=== PATIENT | female | born 1995 | race Caucasian/White ===

== ENCOUNTER 2017-05-27 23:43 | Observation (INO) | payer SELFPAY ==
[2017-05-28] MEDS ORDERED: SODIUM CHLORIDE 1,000 ML IV STA (00:06)
[2017-05-28] MEDS ORDERED: ONDANSETRON 4 MG/2 ML VIAL IVPUSH ONE ×2 (00:06→01:58)
--- NOTE | 2017-05-28 00:07 | PDOC ---
History of Present Illness - General History Source: Patient Exam Limitations: No Limitations - History of Present Illness Initial Comments: 05/28/17 00:16 21 y/o F () presents to the ED via EMS with vomiting since yesterday. Patient has vomited every 20 minutes since yesterday. She states the vomit is liquid, sometimes yellow and frothy, but denies any blood. She reports associated dizziness and lightheadedness. She saw her OBGYN today who gave her Zofran, which has not worked and she has continues to vomit. She denies sick contacts, any new or unusual foods. Denies recent travel. Denies fever, chills. Denies diarrhea, constipation. Denies urinary complaints. OBGYN: Dr. Diamond PMHx: asthma Allergies: NKDA Surgeries: none SHx: no tobacco, alcohol, drug use <Purnima Snow - Last Filed: 05/28/17 00:51> <Janine Davies - Last Filed: 05/28/17 17:28> - General Chief Complaint: Nausea/Vomiting Stated Complaint: 2 1/2 MO /VOMITING Time Seen by Provider: 05/28/17 00:05 Past History <Purnima Snow - Last Filed: 05/28/17 00:51> - Past Medical History Asthma: Yes - Reproductive History (#): 1 Para: 0 - Immunization History Immunization Up to Date: No - Suicide/Smoking/Psychosocial Hx Smoking History: Never smoked Have you smoked in the past 12 months: No Hx Alcohol Use: No Drug/Substance Use Hx: No Substance Use Type: None <Janine Davies - Last Filed: 05/28/17 17:28> - Past Medical History Allergies/Adverse Reactions: Allergies Allergy/AdvReac Type Severity Reaction Status Date / Time No Known Allergies Allergy Verified 05/28/17 00:13 Home Medications: Ambulatory Orders Albuterol Sulfate Inhaler - [Ventolin Hfa Inhaler -] 2 inh PO Q4H PRN 05/28/17 Review of Systems - Review of Systems Able to Perform ROS?: Yes Comments:: 05/28/17 00:17 CONSTITUTIONAL: Absent: fever, chills, diaphoresis, generalized weakness, malaise, loss of appetite HEENT: Absent: rhinorrhea, nasal congestion, throat pain, throat swelling, difficulty swallowing, mouth swelling, ear pain, eye pain, visual changes CARDIOVASCULAR: Absent: chest pain, syncope, palpitations, irregular heart rate , lightheadedness, peripheral edema RESPIRATORY: Absent: cough, shortness of breath, dyspnea with exertion, orthopnea, wheezing, stridor, hemoptysis GASTROINTESTINAL: (+) vomiting. Absent: abdominal pain, abdominal distension, diarrhea, constipation, melena, hematochezia GENITOURINARY: Absent: dysuria, frequency, urgency, hesitancy, hematuria, flank pain, genital pain MUSCULOSKELETAL: Absent: myalgia, arthralgia, joint swelling SKIN: Absent: rash, itching, pallor HEMATOLOGIC/IMMUNOLOGIC: Absent: easy bleeding, easy bruising, lymphadenopathy, frequent infections ENDOCRINE: Absent: unexplained weight gain, unexplained weight loss, heat intolerance, cold intolerance NEUROLOGIC: (+) dizziness/lightheadedness. Absent: headache, focal weakness or paresthesias, unsteady gait, seizure, mental status changes, bladder or bowel incontinence PSYCHIATRIC: Absent: anxiety, depression, suicidal or homicidal ideation, hallucinations. <Purnima Snow - Last Filed: 05/28/17 00:51> *Physical Exam - Vital Signs Last Vital Signs Temp Pulse Resp BP Pulse Ox 98.5 F 75 19 141/79 97 05/28/17 00:05 05/28/17 00:05 05/28/17 00:05 05/28/17 00:05 05/28/17 00:05 - Physical Exam Comments: 05/28/17 00:51 GENERAL: Well developed, well nourished. Awake and alert. Actively vomiting. HEENT: Normocephalic, atraumatic. PERRLA, EOMI. No conjunctival pallor. Sclera are non-icteric. Moist mucous membranes. Oropharynx is clear. NECK: Supple. Full ROM. No JVD. Carotid pulses 2+ and symmetric, without bruits. No thyromegaly. No lymphadenopathy. CARDIOVASCULAR: Regular rate and rhythm. No murmurs, rubs, or gallops. Distal pulses are 2+ and symmetric. PULMONARY: No evidence of respiratory distress. Lungs clear to auscultation bilaterally. No wheezing, rales or rhonchi. ABDOMINAL: Soft. Non-tender. Non-distended. No rebound or guarding. No organomegaly. Normoactive bowel sounds. MUSCULOSKELETAL: Normal range of motion at all joints. No bony deformities or tenderness. No CVA tenderness. EXTREMITIES: No cyanosis. No clubbing. No edema. No calf tenderness. SKIN: Warm and dry. Normal capillary refill. No rashes. No jaundice. NEUROLOGICAL: Alert, awake, appropriate. Cranial nerves 2-12 intact. No deficits to light touch and temperature in face, upper extremities and lower extremities. No motor deficits in the in face, upper extremities and lower extremities. Normoreflexic in the upper and lower extremities. Normal speech. Toes are downgoing bilaterally. Gait is normal without ataxia. PSYCHIATRIC: Cooperative. Good eye contact. Appropriate mood and affect. <Purnima Snow - Last Filed: 05/28/17 00:51> ED Treatment Course - LABORATORY CBC & Chemistry Diagram: 05/28/17 00:50 05/28/17 00:50 <Janine Davies - Last Filed: 05/28/17 17:28> Medical Decision Making - Medical Decision Making 05/28/17 00:52 pt is appr 10 weeks with persistent vomiting -she saw Dr Bower today and he wrote a RX for anti -emetic medication and she took it but still vomited PMH asthma PSh none social history no smoking,no etoh <Janine Davies - Last Filed: 05/28/17 17:28> *DC/Admit/Observation/Transfer - Attestations Scribe Attestion: 05/28/17 00:18 Documentation prepared by Purnima Snow, acting as medical office asst for Janine Davies MD. <Purnima Snow - Last Filed: 05/28/17 00:51> <Janine Davies - Last Filed: 05/28/17 17:28> Diagnosis at time of Disposition: Hyperemesis - Discharge Dispostion Condition at time of disposition: Fair
[2017-05-28] MEDS ORDERED: ONDANSETRON 4 MG/2 ML VIAL ONE ×3 (00:39→02:07)
[2017-05-28 01:16] LABS: BASOPHIL 0.2 % (0-2.0); EOSINOPHIL 0.3 % (0-4.5); MCH 31.4 pg (25.7-33.7); MCHC 35.5 g/dl (32.0-36.0); MEAN CELL VOLUME 88.3 fl (80-96); MEAN PLT VOLUME 10.7 fl (7.5-11.1); NEUTROPHILS 83.5 % (42.8-82.8); PLATELET COUNT 180 K/MM3 (134-434); RDW 13.1 % (11.6-15.6); WHITE BLOOD COUNT 10.5 K/mm3 (4.0-10.0)
[2017-05-28 01:31] LABS: ALBUMIN 3.7 g/dl (3.4-5.0); ANION GAP 11 (8-16); BILIRUBIN,TOTAL 0.8 mg/dL (0.2-1.0); CALCIUM 8.5 mg/dL (8.5-10.1); CO2 22 mmol/L (21-32); CREATININE 0.4 mg/dL (0.55-1.02); GLUCOSE,RANDOM 92 mg/dL (74-106); SGOT/AST 10 U/L (15-37); SGPT/ALT 17 U/L (12-78); TOT PROT 6.8 g/dl (6.4-8.2)
[2017-05-28 01:32] LABS: ALK PHOS 37 U/L (45-117)
[2017-05-28] MEDS ORDERED: DEXTROSE 5%-NORMAL SALINE 1,000 ML IV ONE (01:58)
[2017-05-28] MEDS ORDERED: METOCLOPRAMIDE HCL INJECTION 10 MG/2 ML VIAL IVPUSH ONE (03:16)
[2017-05-28] MEDS ORDERED: METOCLOPRAMIDE HCL INJECTION 10 MG/2 ML VIAL ONE ×2 (03:19→08:50)
[2017-05-28] MEDS ORDERED: SODIUM CHLORIDE 0.9% 1000 ML INFUS.BAG IV ONE (04:35)
--- NOTE | 2017-05-28 04:38 | PDOC ---
*Physical Exam - Vital Signs Last Vital Signs Temp Pulse Resp BP Pulse Ox 98.5 F 75 19 141/79 97 05/28/17 00:05 05/28/17 00:05 05/28/17 00:05 05/28/17 00:05 05/28/17 00:05 - Physical Exam General Appearance: Yes: Mild Distress Gastrointestinal/Abdominal: positive: Soft. negative: Tender, Guarding, Rebound ED Treatment Course - LABORATORY CBC & Chemistry Diagram: 05/28/17 00:50 05/28/17 00:50 - ADDITIONAL ORDERS Additional order review: Laboratory Results 05/28/17 00:50 Sodium 137 Potassium 3.4 L Chloride 104 Carbon Dioxide 22 Anion Gap 11 BUN 6 L Creatinine 0.4 L D Creat Clearance w eGFR > 60 Random Glucose 92 Calcium 8.5 Total Bilirubin 0.8 AST 10 L D ALT 17 D Alkaline Phosphatase 37 L D Total Protein 6.8 Albumin 3.7 Lipase 137 05/28/17 00:50 RBC 3.49 L MCV 88.3 MCHC 35.5 RDW 13.1 MPV 10.7 Neutrophils % 83.5 H Lymphocytes % 8.2 Monocytes % 7.8 Eosinophils % 0.3 Basophils % 0.2 - Medications Given in the ED: ED Medications Discontinued Medications Generic Name Dose Route Start Last Admin Trade Name Freq PRN Reason Stop Dose Admin Diphenhydramine HCl 25 mg 05/28/17 03:16 05/28/17 03:28 Benadryl Injection - IVPUSH 05/28/17 03:17 25 mg ONCE ONE Administration Sodium Chloride 1,000 mls @ 1,000 mls/hr 05/28/17 00:06 05/28/17 01:07 Normal Saline - IV 05/28/17 01:05 1,000 mls/hr ASDIR STA Administration Dextrose/Sodium Chloride 1,000 mls @ 1,000 mls/hr 05/28/17 01:58 05/28/17 02:11 D5-Ns - IV 05/28/17 02:57 1,000 mls/hr ONCE ONE Administration Metoclopramide HCl 10 mg 05/28/17 03:16 05/28/17 03:28 Reglan Injection - IVPUSH 05/28/17 03:17 10 mg ONCE ONE Administration Ondansetron HCl 4 mg 05/28/17 00:06 05/28/17 01:08 Zofran Injection IVPUSH 05/28/17 00:07 4 mg ONCE ONE Administration Ondansetron HCl 4 mg 05/28/17 01:58 05/28/17 02:11 Zofran Injection IVPUSH 05/28/17 01:59 4 mg ONCE ONE Administration Medical Decision Making - Medical Decision Making 05/28/17 04:36 Reevaluation: Patient with hyperemesis gravidarum status post 8 mg Zofran and 2 L fluid 10 mg Reglan 25 mg Benadryl patient still unable to tolerate fluids by mouth We'll observe overnight for continued hydration and antiemetics and further evaluation. 05/28/17 05:20 *DC/Admit/Observation/Transfer Diagnosis at time of Disposition: Hyperemesis Qualifiers: Vomiting type: unspecified Nausea presence: with nausea Qualified Code(s): R11.2 - Nausea with vomiting, unspecified - Discharge Dispostion Condition at time of disposition: Fair Admit: Yes
[2017-05-28] MEDS: MULTIVIT IV ONE ×2 (08:59→11:21)
[2017-05-28] MEDS: LACTATED RINGERS IV ONE ×2 (08:59→11:21)
[2017-05-28] MEDS: METOCLOPRAMIDE HCL INJECTION 10 MG/2 ML VIAL IVPB SCH ×2 (09:25→17:18)
[2017-05-28 09:35] LABS: URINE APPEARANCE SLCLOUDY; URINE BILIRUBIN NEGATIVE (NEGATIVE); URINE BLOOD NEGATIVE (NEGATIVE); URINE COLOR LTYELLOW; URINE GLUCOSE (UA) NEGATIVE (NEGATIVE); URINE KETONE 2+ (NEGATIVE); URINE NITRITE NEGATIVE (NEGATIVE); URINE PROTEIN NEGATIVE (NEGATIVE); URINE UROBILINOGEN NEGATIVE mg/dL (0.2-1.0)
[2017-05-28 16:44] LABS: URINE LEUK ESTERASE 3+ (NEGATIVE)
[2017-05-28 19:08] LABS: URINE RBC 0-2 /hpf (0-3)
[2017-05-28 19:09] LABS: URINE BACTERIA MODERATE /hpf (NEGATIVE)
[2017-05-28] MEDS: DEXTROSE 5%-LACTATED RINGERS 1,000 ML IV SCH (21:00)
[2017-05-29] MEDS: METOCLOPRAMIDE HCL INJECTION 10 MG/2 ML VIAL IVPB SCH ×2 (01:17→10:05)
--- NOTE | 2017-05-29 11:57 | PN ---
Progress Note (SOAP) - Subjective Chief Complaint: Pt tolerating clears - Current Medications Current Medications: Active Medications Dextrose/Lactated Ringer's (D5-Lr -) 1,000 mls @ 125 mls/hr IV ASDIR NIKKI Last Admin: 05/28/17 21:00 Dose: 125 mls/hr Metoclopramide HCl (Reglan Injection -) 10 mg IVPB Q8H-IV NIKKI Last Admin: 05/29/17 10:05 Dose: 10 mg - Objective Vital Signs: Vital Signs Temperature 98.8 F 05/29/17 05:11 Pulse Rate 73 05/29/17 05:11 Respiratory Rate 18 05/29/17 05:11 Blood Pressure 112/79 05/29/17 05:11 O2 Sat by Pulse Oximetry (%) 99 05/28/17 09:02 Constitutional: Yes: Well Nourished, No Distress Assessment/Plan Hyperemesis Plan Advance diet when able to tolerate
[2017-05-29] MEDS: DEXTROSE 5%-LACTATED RINGERS 1,000 ML IV SCH (12:06)
[2017-05-29 12:22] VITALS: PULSE 89
[2017-05-29 14:24] VITALS: BP 104/54; TEMP 98.9
--- NOTE | 2017-05-29 16:01 | HP ---
Past Medical History - Admission Chief Complaint: Nausea and vomiting History of Present Illness: 21 yo @ 10 weeks gestation admitted due to inability to keep anything by mouth without vomiting. Patient started care at Dr. Diamond's office. She presented to ER c/o severe nausea and vomiting. History Source: Patient Limitations to Obtaining History: No Limitations - Past Medical History ...: 1 ...Para: 0 - Past Surgical History Past Surgical History: Yes: None Hx Myomectomy: No Hx Transabdominal Cerclage: No - Smoking History Smoking history: Never smoked Have you smoked in the past 12 months: No - Alcohol/Substance Use Hx Alcohol Use: No History of Substance Use: reports: None - Social History Usual Living Arrangement: Yes: With Parent History of Recent Travel: No Home Medications - Allergies Allergies/Adverse Reactions: Allergies Allergy/AdvReac Type Severity Reaction Status Date / Time No Known Allergies Allergy Verified 05/28/17 00:13 - Home Medications Home Medications: Ambulatory Orders Albuterol Sulfate Inhaler - [Ventolin Hfa Inhaler -] 2 inh PO Q4H PRN 05/28/17 Family Disease History - Family Disease History Family History: Unremarkable Review of Systems - Review of Systems Constitutional: reports: No Symptoms Eyes: reports: No Symptoms HENT: reports: No Symptoms Neck: reports: No Symptoms Cardiovascular: reports: No Symptoms Respiratory: reports: No Symptoms Gastrointestinal: reports: No Symptoms Genitourinary: reports: No Symptoms Breasts: reports: No Symptoms Reported Musculoskeletal: reports: No Symptoms Integumentary: reports: No Symptoms Neurological: reports: No Symptoms Endocrine: reports: No Symptoms Hematology/Lymphatic: reports: No Symptoms Psychiatric: reports: No Symptoms Pain Intensity: 0 Physical Exam - Maternity Vital Signs: Vital Signs Temperature 98.9 F 05/29/17 14:00 Pulse Rate 89 05/29/17 14:00 Respiratory Rate 18 05/29/17 14:00 Blood Pressure 104/54 05/29/17 14:00 O2 Sat by Pulse Oximetry (%) 99 05/28/17 09:02 Constitutional: Yes: Well Nourished Eyes: Yes: Conjunctiva Clear HENT: Yes: Atraumatic Neck: Yes: Supple, Trachea Midline Cardiovascular: Yes: Regular Rate and Rhythm Lungs: Clear to auscultation Breast(s): Yes: WNL - Abdominal Exam/OB Number of Fetuses: Single Contractions: No - Physical Exam ...Motor Strength: WNL Psychiatric: Yes: Alert, Oriented Assessment/Plan Hyperemesis Gravidarum Admit to antepartum IV multivitamin Reglan IVPB NPO
--- NOTE | 2017-05-29 16:12 | DS ---
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: Vital Signs Temperature 98.9 F 05/29/17 14:00 Pulse Rate 89 05/29/17 14:00 Respiratory Rate 18 05/29/17 14:00 Blood Pressure 104/54 05/29/17 14:00 O2 Sat by Pulse Oximetry (%) 99 05/28/17 09:02 Constitutional: Yes: Calm Eyes: Yes: Conjunctiva Clear HENT: Yes: Atraumatic Neck: Yes: Supple Cardiovascular: Yes: Regular Rate and Rhythm Respiratory: Yes: WNL Gastrointestinal: Yes: WNL External Genitalia: Yes: Normal Vaginal Exam: Yes: Normal Cervix: Yes: Normal Uterus: Yes: Other (Gravid) Extremities: Yes: WNL Neurological: Yes: Alert, Oriented ...Motor Strength: WNL Psychiatric: Yes: Alert, Oriented Discharge Summary Reason For Visit: 2 1/2 MO /VOMITING Current Active Problems Hyperemesis (Acute) Hospital Course: 21 yo admitted for severe hyperemesis gravidarum; she was placed on IV antiemetic and IV multivitamins. After being NPO for 24 hrs, she started to feel better and requested to be discharge home. Condition: Good - Instructions Diet, Activity, Other Instructions: Diet as tolerated Continue antiemetic F/U with Dr. Diamond in one week Disposition: HOME - Home Medications Comprehensive Discharge Medication List: Ambulatory Orders Albuterol Sulfate Inhaler - [Ventolin Hfa Inhaler -] 2 inh PO Q4H PRN 05/28/17
== END 2017-05-29 16:40 | disposition home or self-care (01) ==
LOC: JER 23:43 → JERBED 05-28 05:20 → J3W 05-28 09:40
PROVIDERS: ADMIT Obstetrics & Gynecology; ATTEND Obstetrics & Gynecology
PROC: 3E033GC Introduction of Other Therapeutic Substance into Peripheral Vein, Percutaneous Approach (ICD-10-PCS; principal; 2017-05-28)
PROC: 3E0337Z Introduction of Electrolytic and Water Balance Substance into Peripheral Vein, Percutaneous Approach (ICD-10-PCS; 2017-05-28)
DX: O21.0 Mild hyperemesis gravidarum (principal); Z3A.10 10 weeks gestation of pregnancy
CPT/HCPCS: 36415; 80053; 81003; 81015; 83690; 84702; 84703; 85025; 99283-25; G0378

== ENCOUNTER 2017-06-14 11:11 | Inpatient (IN) | payer MEDICARE, OTHER ==
--- NOTE | 2017-06-14 11:22 | PDOC ---
History of Present Illness - General Stated Complaint: 11 WEEKS VOMITING Time Seen by Provider: 06/14/17 11:18 - History of Present Illness Initial Comments: 06/14/17 11:24 21 yo at 12 wga who presents with emesis. Patient reports multiple episodes of non biliary or non bloody emesis within past 24 hours. Prior to onset she exeprienced 2-3 episodes of emesis over last 2 weeks. Also endorses lightheadedness and GI upset/burning abdomen. Denies chest pain, SOB, fevers/ chills, dysuria, vaginal bleeding, diarrhea, blood per stool. Recent ED encounter (05/31) with [facility] consultation. Obstetrics U/S (05/31/17): Single viable intrauterine gestation at 10 weeks 2 days. Has attempted, Zofran , Reglan , and B6 in past with mild alleviation of symtpoms. H/o Hyperemesis Gravidarum ( 05/28-05/29) admission. Past History - Past Medical History Allergies/Adverse Reactions: Allergies Allergy/AdvReac Type Severity Reaction Status Date / Time No Known Allergies Allergy Verified 06/14/17 11:32 Home Medications: Ambulatory Orders Albuterol Sulfate Inhaler - [Ventolin HFA Inhaler -] 2 inh PO Q4H PRN 05/28/17 Pnv#71/Iron/Folic Acid/Dha [Prena1 Shelley Softgel] 1 each PO DAILY #30 cap. 06/01/17 Anemia: No Asthma: Yes Cancer: No Cardiac Disorders: No CVA: No COPD: No CHF: No Dementia: No Diabetes: No GI Disorders: No Disorders: No HTN: No Hypercholesterolemia: No Liver Disease: No Seizures: No Thyroid Disease: No - Surgical History Abdominal Surgery: No Appendectomy: No Cardiac Surgery: No Cholecystectomy: No Lung Surgery: No Neurologic Surgery: No Orthopedic Surgery: No - Reproductive History (#): 1 Para: 0 - Immunization History Immunization Up to Date: No - Suicide/Smoking/Psychosocial Hx Smoking History: Never smoked Have you smoked in the past 12 months: No Hx Alcohol Use: No Drug/Substance Use Hx: Yes Substance Use Type: Marijuana Review of Systems - Review of Systems Comments:: 06/14/17 11:22 GENERAL/CONSTITUTIONAL: No fever or chills. No weakness. HEAD, EYES, EARS, NOSE AND THROAT: No change in vision. No ear pain or discharge. No sore throat.- CARDIOVASCULAR: No chest pain or shortness of breath RESPIRATORY: No cough, wheezing, or hemoptysis. GASTROINTESTINAL: + nausea, vomiting. No diarrhea or constipation. GENITOURINARY: No dysuria, frequency, or change in urination. MUSCULOSKELETAL: No joint or muscle swelling or pain. No neck or back pain. SKIN: No rash NEUROLOGIC: + Lightheadeness. No headache, vertigo, loss of consciousness, or change in strength/sensation. ENDOCRINE: No increased thirst. No abnormal weight change HEMATOLOGIC/LYMPHATIC: No anemia, easy bleeding, or history of blood clots. ALLERGIC/IMMUNOLOGIC: No hives or skin allergy. *Physical Exam - Physical Exam Comments: 06/14/17 11:22 GENERAL: Awake, alert, and fully oriented, in no acute distress HEAD: No signs of trauma, normocephalic, atraumatic EYES: PERRLA, EOMI, sclera anicteric, conjunctiva clear ENT:hearing grossly normal, nares patent, oropharynx clear without exudates. Moist mucosa NECK: Normal ROM, supple, no lymphadenopathy, JVD, or masses LUNGS: No distress, speaks full sentences, clear to auscultation bilaterally HEART: Regular rate and rhythm, normal S1 and S2, no murmurs, rubs or gallops, peripheral pulses normal and equal bilaterally. ABDOMEN: Soft, nontender, normoactive bowel sounds. No guarding, no rebound. No masses. Neg CVA ttp. EXTREMITIES : Normal inspection, Normal range of motion, no edema. No clubbing or cyanosis. SKIN: Warm, Dry, normal turgor, no rashes or lesions noted. ED Treatment Course - LABORATORY CBC & Chemistry Diagram: 06/14/17 11:35 06/14/17 11:35 Medical Decision Making - Medical Decision Making 06/14/17 13:01 21 yo at 12 wga who arrives EMS w/ multiple episodes of non biliary or non bloody emesis within past 24 hours. Also endorses lightheadedness and GI upset. Unable to tolerate PO intake. Denies chest pain, SOB, fevers/chills, dysuria, vaginal bleeding, diarrhea, blood per stool. Phyiscal exam unremarkable and patient normotensive. Recent ED encounter (05/31) with [facility] consultation and Obstetrics U/S (05/31/17): Single viable intrauterine gestation at 10 weeks 2 days. Has attempted, Zofran , Reglan, and B6 in past with mild alleviation of symtpoms. H/o Hyperemesis Gravidarum (05/28-05/29) requiring admission. ED Course: CBC,CMP, UA, BHCG QUANT 06/14/17 13:04 IVNS 1 L and Zofran 4 mg IVPB 06/14/17 13:19 WBC: 11.3 06/14/17 13:40 25 mg Diphenhydramine PO 06/14/17 13:40 FHR: 176 on bedside ultrasound with adequate movement and appropriate for age gestational size. 06/14/17 14:18 Pepcid 20 mg, Reglan, B6 06/14/17 17:07 Patient continues to vomit despite multiple antiemetics 06/14/17 17:[address] Brower 06/14/17 18:[address] Lucian Orellana PCP 06/14/17 18:[address]Elizabeth Brower/ Cell phone number called. Dr. 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 Mcintyre. She states that she will not admit pt. because she can manage symptoms as outpatient, but will come see pt. Admit pt.to Dr. Brower/Obs *DC/Admit/Observation/Transfer Diagnosis at time of Disposition: Hyperemesis arising during - Discharge Dispostion Admit: Yes - Referrals Referrals: Lucian Orellana MD [Primary Care Provider] - - Patient Instructions - Post Discharge Activity
[2017-06-14] MEDS ORDERED: SODIUM CHLORIDE 1,000 ML IV STA (11:34)
[2017-06-14] MEDS ORDERED: ONDANSETRON 4 MG/2 ML VIAL IVPB ONE ×2 (11:44→17:38)
[2017-06-14 11:45] LABS: BASOPHIL 0.4 % (0-2.0); EOSINOPHIL 0.1 % (0-4.5); MCH 30.5 pg (25.7-33.7); MCHC 33.3 g/dl (32.0-36.0); MEAN CELL VOLUME 91.5 fl (80-96); MEAN PLT VOLUME 10.5 fl (7.5-11.1); NEUTROPHILS 90.3 % (42.8-82.8); PLATELET COUNT 190 K/MM3 (134-434); RDW 13.8 % (11.6-15.6); WHITE BLOOD COUNT 11.3 K/mm3 (4.0-10.0)
[2017-06-14] MEDS ORDERED: ONDANSETRON 4 MG/2 ML VIAL ONE ×2 (11:52→17:31)
--- NOTE | 2017-06-14 11:52 | PDOC ---
Attending Attestation - Resident Resident Name: Cody Kraus - ED Attending Attestation I have performed the following: I have examined & evaluated the patient, The case was reviewed & discussed with the resident, I agree w/resident's findings & plan, Exceptions are as noted - HPI HPI: 06/14/17 14:04 21y at 12 weeks presents with vomiting. Pt was here recently and admitted for hyperemesis gravidarum, was feeling better at discharge and states she was doing well until about 3 am today, and endorsed some epigastric pain that has since resolved. No current abdominal pain, vaginal bleeding, fever/chills, diarrhea. On exam pt has mildly dry mmm, abd is soft nontender no LE edema suspect hyperemesis graviduarm vs. gastritis labs reviewed noted for mild leukocytosis wich is consistent with her UA pending will give pepcid/maalox, reglan, fluids, b6 will reassess - Physicial Exam PE: 06/18/17 08:18 see above - Medical Decision Making 06/14/17 17:28 pt still feeling naueus and unable to tolerate oral ntake will keep on observatio nstatus for further hydration and treatment with antiemetic
[2017-06-14 12:11] LABS: ALBUMIN 3.6 g/dl (3.4-5.0); ANION GAP 13 (8-16); CALCIUM 9.1 mg/dL (8.5-10.1); CO2 21 mmol/L (21-32); CREATININE 0.4 mg/dL (0.55-1.02); GLUCOSE,RANDOM 102 mg/dL (74-106); SGPT/ALT 25 U/L (12-78)
[2017-06-14 12:13] LABS: ALK PHOS 36 U/L (45-117); BILIRUBIN,TOTAL 0.7 mg/dL (0.2-1.0); TOT PROT 7.2 g/dl (6.4-8.2)
[2017-06-14 12:14] LABS: SGOT/AST 18 U/L (15-37)
[2017-06-14 13:34] LABS: URINE APPEARANCE CLOUDY; URINE BILIRUBIN NEGATIVE (NEGATIVE); URINE BLOOD NEGATIVE (NEGATIVE); URINE COLOR YELLOW; URINE GLUCOSE (UA) NEGATIVE (NEGATIVE); URINE KETONE 2+ (NEGATIVE); URINE NITRITE NEGATIVE (NEGATIVE); URINE PROTEIN NEGATIVE (NEGATIVE); URINE UROBILINOGEN NEGATIVE mg/dL (0.2-1.0)
[2017-06-14] MEDS ORDERED: METOCLOPRAMIDE HCL INJECTION 10 MG/2 ML VIAL IVPUSH ONE ×2 (14:04→17:09)
[2017-06-14] MEDS ORDERED: FAMOTIDINE 20 MG/50 ML IVPB 20 MG/50 ML MG IVPB ONE ×2 (14:05→14:13)
[2017-06-14] MEDS ORDERED: METOCLOPRAMIDE HCL INJECTION 10 MG/2 ML VIAL ONE (14:13)
[2017-06-14] MEDS ORDERED: PYRIDOXINE HCL 100 MG/1 ML VIAL IM ONE (14:15)
[2017-06-14] MEDS: DEXTROSE 5%-0.45% SALINE 1,000 ML IV SCH (17:35)
[2017-06-14 20:23] LABS: URINE LEUK ESTERASE Negative (NEGATIVE)
[2017-06-14] MEDS ORDERED: ONDANSETRON 4 MG/2 ML VIAL IVPUSH PRN (22:23)
[2017-06-15] MEDS: DEXTROSE 5%-0.45% SALINE 1,000 ML IV SCH ×3 (00:21→14:48)
[2017-06-15] MEDS ORDERED: ALBUTEROL SO4 18 GM HFA INHALER IH PRN (00:35)
[2017-06-15] MEDS: ONDANSETRON 4 MG/2 ML VIAL IVPUSH PRN ×4 (01:35→20:14)
[2017-06-15 07:49] LABS: BASOPHIL 0.4 % (0-2.0); EOSINOPHIL 0.2 % (0-4.5); MCH 31.1 pg (25.7-33.7); MCHC 34.2 g/dl (32.0-36.0); MEAN PLT VOLUME 10.7 fl (7.5-11.1); NEUTROPHILS 79.5 % (42.8-82.8); PLATELET COUNT 179 K/MM3 (134-434); RDW 13.7 % (11.6-15.6); WHITE BLOOD COUNT 9.4 K/mm3 (4.0-10.0)
[2017-06-15 08:25] LABS: ALBUMIN 3.5 g/dl (3.4-5.0); ANION GAP 11 (8-16); CALCIUM 9.1 mg/dL (8.5-10.1); CO2 22 mmol/L (21-32); CREATININE 0.4 mg/dL (0.55-1.02); GLUCOSE,RANDOM 96 mg/dL (74-106); SGOT/AST 17 U/L (15-37)
[2017-06-15 08:28] LABS: ALK PHOS 35 U/L (45-117); BILIRUBIN,TOTAL 0.9 mg/dL (0.2-1.0); SGPT/ALT 26 U/L (12-78); TOT PROT 6.6 g/dl (6.4-8.2)
[2017-06-15] MEDS ORDERED: PT OWN MED DRAWER 7, Y5N ONE (09:42)
[2017-06-15] MEDS: PRENATAL VITAMINS W/ FOLIC ACID TABLET (FP) PO SCH (09:43)
--- NOTE | 2017-06-15 10:22 | CON.OBG ---
Consult Consult Specialty:: [employer] [facility] OPERATOR Referred by:: Cody Kraus Reason for Consultation:: Nausea / Vomiting - History of Present Illness Chief Complaint: Vomiting in / Dizziness History of Present Illness: 21 yo @ 12 weeks gestation, EDC 12/26/17, patient of DR. Diamond, admitted for the third time for vomiting in associated with dizziness. Patient admits to loosing weight despite taking PO antiemetic. Patient seen and evaluated, she's not in distress, she's on her cell phone texting; she does not look sick. - History Source History Provided By: Patient Limitations to Obtaining History: No Limitations - Past Medical History ...LMP: 02/28/17 ...: Yes - Past Surgical History Past Surgical History: Yes: None - Alcohol/Substance Use Hx Alcohol Use: No History of Substance Use: reports: None - Smoking History Smoking history: Never smoked Have you smoked in the past 12 months: No - Social History History of Recent Travel: No Home Medications - Allergies Allergies/Adverse Reactions: Allergies Allergy/AdvReac Type Severity Reaction Status Date / Time No Known Allergies Allergy Verified 06/14/17 11:32 - Home Medications Home Medications: Ambulatory Orders Albuterol Sulfate Inhaler - [Ventolin HFA Inhaler -] 2 inh PO Q4H PRN 05/28/17 Pnv#71/Iron/Folic Acid/Dha [Prena1 Shelley Softgel] 1 each PO DAILY #30 cap. 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 Signs: Vital Signs Temperature 98.5 F 06/15/17 06:00 Pulse Rate 80 06/15/17 06:00 Respiratory Rate 20 06/15/17 06:00 Blood Pressure 121/80 06/15/17 06:00 O2 Sat by Pulse Oximetry (%) 100 06/14/17 21:50 Constitutional: Yes: Calm Eyes: Yes: Conjunctiva Clear HENT: Yes: Atraumatic Neck: Yes: Supple Cardiovascular: Yes: Regular Rate and Rhythm Respiratory: Yes: Regular Gastrointestinal: Yes: Normal Bowel Sounds Vaginal Exam: Yes: Normal Cervix: No: Bleeding Uterus: Yes: Enlarged Breast(s): Yes: WNL Musculoskeletal: Yes: WNL Extremities: Yes: WNL Neurological: Yes: Alert, Oriented ...Motor Strength: WNL Psychiatric: Yes: Alert, Oriented Labs: CBC, BMP 06/15/17 06:45 06/15/17 06:45 Assessment/Plan Vomiting in Dizziness Continue IV antiemetic Change clear liquid diet to full liquid diet Consider D/C home tomorrow and follow up with Dr. Diamond on 06/18/17
[2017-06-15] MEDS ORDERED: METOCLOPRAMIDE HCL INJECTION 10 MG/2 ML VIAL IVPB ONE (14:30)
--- NOTE | 2017-06-15 16:06 | HP ---
Admitting History and Physical - Admission Chief Complaint: vomiting History of Present Illness: Pt is a 21 y/o female who is 12 weeks and to the ER w/ vomiting. Pt states that for the past 24 hrs she has ahd continuous vomiting and is unable to tolerate PO intake. Pt denies any abdominal pain and no diarrhea/ constipation/fever/chills. History Source: Patient, Medical Record - Past Medical History ...LMP: 02/28/17 ...: Yes - Past Surgical History Past Surgical History: Yes: None - Smoking History Smoking history: Never smoked Have you smoked in the past 12 months: No - Alcohol/Substance Use Hx Alcohol Use: No History of Substance Use: reports: None - Social History History of Recent Travel: No Home Medications - Allergies Allergies/Adverse Reactions: Allergies Allergy/AdvReac Type Severity Reaction Status Date / Time No Known Allergies Allergy Verified 06/14/17 11:32 - Home Medications Home Medications: Ambulatory Orders Albuterol Sulfate Inhaler - [Ventolin HFA Inhaler -] 2 inh PO Q4H PRN 05/28/17 Pnv#71/Iron/Folic Acid/Dha [Prena1 Shelley Softgel] 1 each PO DAILY #30 cap. 06/01/17 Family Disease History - Family Disease History Family History: Unremarkable Review of Systems - Review of Systems Constitutional: reports: No Symptoms Eyes: reports: No Symptoms HENT: reports: No Symptoms Neck: reports: No Symptoms Cardiovascular: reports: No Symptoms Respiratory: reports: No Symptoms Gastrointestinal: reports: Vomiting Genitourinary: reports: No Symptoms Physical Examination Vital Signs: Vital Signs Temperature 99.1 F 06/15/17 14:38 Pulse Rate 79 06/15/17 14:38 Respiratory Rate 20 06/15/17 14:38 Blood Pressure 119/62 06/15/17 14:38 O2 Sat by Pulse Oximetry (%) 100 06/15/17 09:00 Constitutional: Yes: No Distress Eyes: Yes: WNL HENT: Yes: WNL Neck: Yes: WNL, Supple Cardiovascular: Yes: WNL, Regular Rate and Rhythm Respiratory: Yes: WNL, Regular, CTA Bilaterally Gastrointestinal: Yes: WNL, Normal Bowel Sounds Musculoskeletal: Yes: WNL Extremities: Yes: WNL Edema: No Neurological: Yes: WNL, Alert, Oriented ...Motor Strength: WNL Labs: CBC, BMP 06/15/17 06:45 06/15/17 06:45 Problem List - Problems (1) Intractable vomiting Assessment/Plan: Probably hperemesis of Cont IV fluids Full liquid diet IV zofran 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
[2017-06-16] MEDS ORDERED: ACETAMINOPHEN 325 MG TABLET (FP) PO ONE (00:45)
[2017-06-16] MEDS ORDERED: METOCLOPRAMIDE HCL 10 MG TABLET (FP) PO ONE (00:45)
[2017-06-16] MEDS: DEXTROSE 5%-0.45% SALINE 1,000 ML IV SCH ×2 (04:12→16:57)
[2017-06-16 08:44] LABS: BASOPHIL 0.6 % (0-2.0); EOSINOPHIL 0.6 % (0-4.5); MCH 30.6 pg (25.7-33.7); MCHC 33.7 g/dl (32.0-36.0); MEAN CELL VOLUME 90.9 fl (80-96); MEAN PLT VOLUME 10.6 fl (7.5-11.1); NEUTROPHILS 69.9 % (42.8-82.8); PLATELET COUNT 198 K/MM3 (134-434); RDW 13.7 % (11.6-15.6); WHITE BLOOD COUNT 10.3 K/mm3 (4.0-10.0)
[2017-06-16] MEDS ORDERED: PT OWN MED DRAWER 7, Y5N ONE (09:03)
[2017-06-16 09:09] LABS: ALBUMIN 3.4 g/dl (3.4-5.0); ANION GAP 13 (8-16); BILIRUBIN,TOTAL 0.9 mg/dL (0.2-1.0); CALCIUM 8.9 mg/dL (8.5-10.1); CO2 21 mmol/L (21-32); CREATININE 0.5 mg/dL (0.55-1.02); GLUCOSE,RANDOM 87 mg/dL (74-106); SGOT/AST 14 U/L (15-37); SGPT/ALT 30 U/L (12-78); TOT PROT 6.9 g/dl (6.4-8.2)
[2017-06-16] MEDS: ONDANSETRON 4 MG/2 ML VIAL IVPUSH PRN (09:09)
[2017-06-16] MEDS: PRENATAL VITAMINS W/ FOLIC ACID TABLET (FP) PO SCH (09:09)
[2017-06-16 09:10] LABS: ALK PHOS 36 U/L (45-117)
[2017-06-16] MEDS ORDERED: ACETAMINOPHEN 325 MG TABLET (FP) PO PRN (11:39)
--- NOTE | 2017-06-16 12:29 | CON.GI ---
Consult Consult Specialty:: GI Referred by:: Dr Brower Reason for Consultation:: hyperemesis - History of Present Illness Chief Complaint: Patient c/o frequent vomiting and inability to hold food or liquid down. History of Present Illness: 21 F with h/o asthma which she states is only a problem when she has URI now with hyperemesis gravidarum. She states she has had excessive vomiting for the past 3 days. She has seen some coffeegrounds in her vomitus but not seen by nurse and she states yellow stools. She has no abdominal pain. - History Source History Provided By: Patient, Medical Record Limitations to Obtaining History: No Limitations - Past Medical History Cardio/Vascular: No: AFIB, Aneurysm, Aortic Insufficiency, Aortic Stenosis, CAD , CHF, Deep Vein Thrombosis, HTN, Hyperlipdemia, [place], Mitral Insufficiency, Mitral Stenosis, Murmur, Pulmonary Hypertension, Other Pulmonary: Yes: Asthma Gastrointestinal: No: Ascites, Cancer, Constipation, Crohn's Disease, Diverticulitis, Diverticulosis, Esophageal Varices, Gastritis, GERD, GI Bleed, Hemorrhoids, Hiatal Hernia, Inflamatory Bowel Disease, Irritable Bowel Disease, Pancreatitis, Peptic Ulcer Disease, Ulcerative Colitis, Other Hepatobiliary: No: Cirrhosis, Cholelithiasis, Cholecystitis, Choledocholithiasis , Hepatitis A, Hepatitis B, Hepatitis C, Other Renal/: No: Renal Failure, Renal Inusuff, BPH, Cancer, Hematuria, Hemodialysis , Neurogenic Bladder, Renal Calculi, UTI, Other Reproductive: No: Ectopic , Endometriosis, Fibroids, PID, Polycystic Ovary Syndrome, Postmenopausal, Other ...LMP: 02/28/17 ...: Yes Heme/Onc: No: Anemia, B12 Deficiency, Bleeding Disorder, Cancer, Current Chemotherapy, Current Radiation Therapy, Hemochromatosis, Hypercoaguable State, Myeloproliferative Synd, Sickle Cell Disease, Sickle Cell Trait, Thrombocytopenia, Other Infectious Disease: No: AIDS, C-Diff, Herpes Zoster, HIV, MRSA, STD's, Tuberculosis, VREF, Other Psych: No: Addictions, Anxiety, Bipolar, Depression, Panic, Psychosis, Schizophrenia, Other Musculoskeletal: No: Bursitis, Chronic low back pain, Hemiparesis, Hemiplegia, Osteoarthritis, Paraplegia, Other Rheumatology: No: Fibromyalgia, Gout, Lupus, Rheumatoid Arthritis, Sarcoidosis, Vasculitis, Other ENT: No: Allergic Rhinitis, Sinusitis, Other Endocrine: No: Lamoille's Disease, Lidia's Disease, Diabetes Insipidus, Diabetes Mellitus, Hyperparathyroidism, Hyperthyroidism, Hypothyroidism, Osteopenia, SIADH, Other Dermatology: No: Basal Cell, Cellulitis, Eczema, Melanoma, Psoriasis, Squamous Cell, Other - Past Surgical History Past Surgical History: Yes: None. No: AAA Repair, AICD, Amputation, Appendectomy, Arthrosocopy, AV Fistula/Graft, Bariatric Surgery, Breast Biopsy, Bypass, CABG, Carotid Endarterectomy, Cataract Removal, Cholecystectomy, Colectomy, Colonoscopy, Colostomy, Craniotomy, , Cystectomy, Hernia Repair, Hysterectomy, Ileal Conduit, Ileosotomy, Joint Replacement, Kidney Transplant, Laminectomy, Liver Transplant, Mastectomy, Nephrectomy, Oopherectomy , Orchiectomy, Permanent Pacemaker, Prostatectomy, Splenectomy, Stent, Thoracotomy, TURP, Tonsillectomy, Tubal Ligation, Upper Endoscopy, Valve Replacement, Vasectomy, Vein Stripping/Ligation - Alcohol/Substance Use Hx Alcohol Use: No History of Substance Use: reports: None (denies marijuana use) - Smoking History Smoking history: Never smoked Have you smoked in the past 12 months: No - Social History History of Recent Travel: No Home Medications - Allergies Allergies/Adverse Reactions: Allergies Allergy/AdvReac Type Severity Reaction Status Date / Time No Known Allergies Allergy Verified 06/14/17 11:32 - Home Medications Home Medications: Ambulatory Orders Albuterol Sulfate Inhaler - [Ventolin HFA Inhaler -] 2 inh PO Q4H PRN 05/28/17 Pnv#71/Iron/Folic Acid/Dha [Prena1 Shelley Softgel] 1 each PO DAILY #30 cap 06/01/17 Physical Exam-GI Vital Signs: Vital Signs Temperature 98 F 06/16/17 09:00 Pulse Rate 73 06/16/17 09:00 Respiratory Rate 18 06/16/17 09:00 Blood Pressure 132/82 06/16/17 09:00 O2 Sat by Pulse Oximetry (%) 99 06/16/17 09:00 Constitutional: Yes: Well Nourished, Moderate Distress HENT: Yes: Normocephalic Neck: Yes: Supple Cardiovascular: Yes: Regular Rate and Rhythm Respiratory: Yes: CTA Bilaterally Gastrointestinal Inspection: Yes: WNL ...Auscultate: Yes: Normoactive Bowel Sounds ...Palpate: Yes: Soft Psychiatric: Yes: Other (depressed affect) Labs: CBC, BMP 06/16/17 07:30 06/16/17 07:30 Imaging - Results Ultrasound: Report Reviewed (negative study) Assessment/Plan 21 F with 10 weeki now with hyperemesis gravidarum. Ondansetron d/c'd as there could be problems associated with the use of this drug. (mixed reviews suggest Possible problem although unlikely. It is still a class B drug) Continue reglan (Class B)-to be given as standing order and IVPB as she is still actively vomiting. IVF full liquid diet Pyridoxine IVPB If vomiting continues, rec benadryl 50 mg IVPB q6h
[2017-06-16] MEDS: METOCLOPRAMIDE HCL INJECTION 10 MG/2 ML VIAL IVPUSH PRN (15:03)
[2017-06-16] MEDS: PYRIDOXINE HCL 100 MG/1 ML VIAL IM SCH (15:04)
--- NOTE | 2017-06-16 21:53 | PN ---
Progress Note, Physician History of Present Illness: Pt w/ some abdominal discomfort Pt was unable to tolerate PO today - Current Medication List Current Medications: Active Medications Acetaminophen (Tylenol -) 650 mg PO Q4H PRN PRN Reason: FEVER OR PAIN Last Admin: 06/16/17 11:43 Dose: 650 mg Albuterol Sulfate (Ventolin Hfa Inhaler -) 2 puff IH Q4H PRN PRN Reason: ASTHMA Dextrose/Sodium Chloride (D5-1/2ns -) 1,000 mls @ 75 mls/hr IV ASDIR [facility] Last Admin: 06/16/17 16:57 Dose: 75 mls/hr Metoclopramide HCl (Reglan Injection -) 10 mg IVPUSH Q6H PRN PRN Reason: NAUSEA AND/OR VOMITING Last Admin: 06/16/17 15:03 Dose: 10 mg Multivit/Folic Acid/Iron ( Vitamins (Sjr) -) 1 tab PO DAILY [facility] Last Admin: 06/16/17 09:09 Dose: 1 tab Pyridoxine HCl (Vitamin B6 Injection -) 100 mg IM DAILY [facility] Last Admin: 06/16/17 15:04 Dose: 100 mg - Objective Vital Signs: Vital Signs Temperature 98.4 F 06/16/17 14:42 Pulse Rate 93 H 06/16/17 14:42 Respiratory Rate 18 06/16/17 14:42 Blood Pressure 119/71 06/16/17 14:42 O2 Sat by Pulse Oximetry (%) 99 06/16/17 21:00 Constitutional: Yes: No Distress HENT: Yes: WNL Neck: Yes: WNL, Supple Cardiovascular: Yes: WNL, Regular Rate and Rhythm Respiratory: Yes: WNL, Regular, CTA Bilaterally Gastrointestinal: Yes: WNL, Normal Bowel Sounds, Soft Labs: CBC, BMP 06/16/17 07:30 06/16/17 07:30 Problem List - Problems (1) Intractable vomiting Assessment/Plan: Probably hperemesis of Cont IV fluids Diet changed back to liquids Zofran changed to reglan as per GI Will attempt regular diet in am inAs per communications programmer Code(s): R11.10 - VOMITING, UNSPECIFIED
[2017-06-17] MEDS: DEXTROSE 5%-0.45% SALINE 1,000 ML IV SCH ×2 (00:45→06:06)
[2017-06-17 08:05] LABS: BASOPHIL 0.9 % (0-2.0); EOSINOPHIL 1.7 % (0-4.5); MCH 30.9 pg (25.7-33.7); MEAN CELL VOLUME 90.7 fl (80-96); MEAN PLT VOLUME 10.1 fl (7.5-11.1); NEUTROPHILS 62.8 % (42.8-82.8); PLATELET COUNT 169 K/MM3 (134-434); RDW 13.6 % (11.6-15.6); WHITE BLOOD COUNT 6.9 K/mm3 (4.0-10.0)
[2017-06-17] MEDS: METOCLOPRAMIDE HCL INJECTION 10 MG/2 ML VIAL IVPUSH PRN (08:24)
[2017-06-17 08:46] LABS: ALBUMIN 2.9 g/dl (3.4-5.0); ALK PHOS 32 U/L (45-117); ANION GAP 11 (8-16); BILIRUBIN,TOTAL 1.1 mg/dL (0.2-1.0); CALCIUM 8.3 mg/dL (8.5-10.1); CO2 23 mmol/L (21-32); CREATININE 0.4 mg/dL (0.55-1.02); GLUCOSE,RANDOM 80 mg/dL (74-106); SGOT/AST 15 U/L (15-37); SGPT/ALT 30 U/L (12-78); TOT PROT 5.6 g/dl (6.4-8.2)
[2017-06-17] MEDS ORDERED: PT OWN MED DRAWER 7, Y5N ONE (09:12)
[2017-06-17] MEDS: PYRIDOXINE HCL 100 MG/1 ML VIAL IM SCH (09:16)
[2017-06-17] MEDS ORDERED: POTASSIUM CHLORIDE 30 MEQ in SODIUM CHLORIDE 285 ML IVPB ONE (10:30)
[2017-06-17] MEDS: PRENATAL VITAMINS W/ FOLIC ACID TABLET (FP) PO SCH (10:42)
[2017-06-17] MEDS: ONDANSETRON 4 MG/2 ML VIAL IVPUSH PRN ×2 (14:45→22:12)
--- NOTE | 2017-06-17 22:40 | PN ---
Progress Note, Physician - Current Medication List Current Medications: Active Medications Acetaminophen (Tylenol -) 650 mg PO Q4H PRN PRN Reason: FEVER OR PAIN Last Admin: 06/16/17 11:43 Dose: 650 mg Albuterol Sulfate (Ventolin Hfa Inhaler -) 2 puff IH Q4H PRN PRN Reason: ASTHMA Dextrose/Sodium Chloride (D5-1/2ns -) 1,000 mls @ 75 mls/hr IV ASDIR [facility] Last Admin: 06/17/17 06:06 Dose: 75 mls/hr Ondansetron HCl (Zofran Injection) 4 mg IVPUSH Q8H PRN PRN Reason: NAUSEA AND/OR VOMITING Last Admin: 06/17/17 22:12 Dose: 4 mg Multivit/Folic Acid/Iron ( Vitamins (Sjr) -) 1 tab PO DAILY [facility] Last Admin: 06/17/17 10:42 Dose: Not Given Pyridoxine HCl (Vitamin B6 Injection -) 100 mg IM DAILY [facility] Last Admin: 06/17/17 09:16 Dose: 100 mg - Objective Vital Signs: Vital Signs Temperature 99.4 F 06/17/17 19:34 Pulse Rate 86 06/17/17 19:34 Respiratory Rate 18 06/17/17 19:34 Blood Pressure 108/64 06/17/17 19:34 O2 Sat by Pulse Oximetry (%) 99 06/17/17 10:00 Labs: CBC, BMP 06/17/17 07:30 06/17/17 07:30 Problem List - Problems (1) Intractable vomiting Code(s): R11.10 - VOMITING, UNSPECIFIED
[2017-06-18] MEDS: DEXTROSE 5%-0.45% SALINE 1,000 ML IV SCH ×2 (00:34→14:20)
[2017-06-18 07:49] LABS: BASOPHIL 0.6 % (0-2.0); MCHC 34.3 g/dl (32.0-36.0); MEAN CELL VOLUME 90.5 fl (80-96); MEAN PLT VOLUME 10.2 fl (7.5-11.1); NEUTROPHILS 68.1 % (42.8-82.8); PLATELET COUNT 172 K/MM3 (134-434); RDW 13.5 % (11.6-15.6)
[2017-06-18 08:17] LABS: ALBUMIN 2.9 g/dl (3.4-5.0); ANION GAP 9 (8-16); CALCIUM 8.5 mg/dL (8.5-10.1); CO2 25 mmol/L (21-32); GLUCOSE,RANDOM 87 mg/dL (74-106)
[2017-06-18 08:19] LABS: ALK PHOS 31 U/L (45-117); BILIRUBIN,TOTAL 0.8 mg/dL (0.2-1.0); CREATININE 0.4 mg/dL (0.55-1.02); SGOT/AST 12 U/L (15-37); SGPT/ALT 33 U/L (12-78); TOT PROT 5.7 g/dl (6.4-8.2)
[2017-06-18] MEDS ORDERED: PT OWN MED DRAWER 7, Y5N ONE (09:14)
[2017-06-18] MEDS: PYRIDOXINE HCL 100 MG/1 ML VIAL IM SCH (09:22)
[2017-06-18] MEDS: ONDANSETRON 4 MG/2 ML VIAL IVPUSH PRN (09:22)
[2017-06-18] MEDS: PRENATAL VITAMINS W/ FOLIC ACID TABLET (FP) PO SCH ×2 (09:23→11:24)
[2017-06-18] MEDS ORDERED: ONDANSETRON 4 MG/2 ML VIAL IVPB STA (16:26)
--- NOTE | 2017-06-18 17:13 | PN ---
GI Progress Note Subjective: still has nausea and vomiting despite Zofran - Objective Vital Signs: Vital Signs Temperature 98.8 F 06/18/17 14:00 Pulse Rate 83 06/18/17 14:00 Respiratory Rate 18 06/18/17 14:00 Blood Pressure 116/74 06/18/17 14:00 O2 Sat by Pulse Oximetry (%) 100 06/18/17 09:00 Constitutional: Well Nourished Eyes: Yes: Conjunctiva Clear HENT: Yes: Atraumatic Neck: Yes: Supple Cardiovascular: Yes: Regular Rate and Rhythm Respiratory: Yes: CTA Bilaterally ...Palpate: Yes: Soft, Other (fullness suprapubic area). No: Firm/Rigid, Guarding, Hepatomegaly, Mass, Pulsatile Mass, Splenomegaly, Tenderness Labs: CBC, BMP 06/18/17 07:30 06/18/17 07:30 Problem List - Problems (1) Hyperemesis arising during Assessment/Plan: R> IV Zofran and Reglan scheduled as ordered Ideally IV Zantac but not available Code(s): O21.0 - MILD HYPEREMESIS GRAVIDARUM
[2017-06-18] MEDS: RANITIDINE HCL 150 MG TABLET (FP) PO SCH ×2 (17:30→22:09)
[2017-06-18] MEDS: METOCLOPRAMIDE HCL INJECTION 10 MG/2 ML VIAL IVPB SCH (17:31)
[2017-06-18] MEDS ORDERED: KCL 10 MEQ IVPB 10 MEQ/100 ML INFUS.BAG IVPB SCH (18:00)
[2017-06-18] MEDS ORDERED: POTASSIUM CHLORIDE 30 MEQ in SODIUM CHLORIDE 300 ML IVPB SCH (18:15)
--- NOTE | 2017-06-18 21:10 | PN ---
Progress Note, Physician History of Present Illness: Pt feeling better Pt tolerated liquids - Current Medication List Current Medications: Active Medications Acetaminophen (Tylenol -) 650 mg PO Q4H PRN PRN Reason: FEVER OR PAIN Last Admin: 06/16/17 11:43 Dose: 650 mg Albuterol Sulfate (Ventolin Hfa Inhaler -) 2 puff IH Q4H PRN PRN Reason: ASTHMA Dextrose/Sodium Chloride (D5-1/2ns -) 1,000 mls @ 75 mls/hr IV ASDIR [facility] Last Admin: 06/18/17 14:20 Dose: 75 mls/hr Potassium Chloride 30 meq/ (Sodium Chloride) 315 mls @ 100 mls/hr IVPB ASDIR [facility] Stop: 06/18/17 21:23 Last Admin: 06/18/17 19:36 Dose: 100 mls/hr Metoclopramide HCl (Reglan Injection -) 10 mg IVPB Q8H [facility] Last Admin: 06/18/17 17:31 Dose: 10 mg Multivit/Folic Acid/Iron ( Vitamins (Sjr) -) 1 tab PO DAILY [facility] Last Admin: 06/18/17 09:23 Dose: 1 tab Pyridoxine HCl (Vitamin B6 Injection -) 100 mg IM DAILY [facility] Last Admin: 06/18/17 09:22 Dose: 100 mg Ranitidine HCl (Zantac -) 150 mg PO BID [facility] Last Admin: 06/18/17 17:30 Dose: 150 mg - Objective Vital Signs: Vital Signs Temperature 98.8 F 06/18/17 14:00 Pulse Rate 83 06/18/17 14:00 Respiratory Rate 18 06/18/17 14:00 Blood Pressure 116/74 06/18/17 14:00 O2 Sat by Pulse Oximetry (%) 100 06/18/17 09:00 Constitutional: Yes: No Distress HENT: Yes: WNL Neck: Yes: WNL, Supple Cardiovascular: Yes: WNL, Regular Rate and Rhythm Respiratory: Yes: WNL, Regular, CTA Bilaterally Gastrointestinal: Yes: WNL, Normal Bowel Sounds, Soft Labs: CBC, BMP 06/18/17 07:30 06/18/17 07:30 Problem List - Problems (1) Intractable vomiting Assessment/Plan: Probably hperemesis of Cont IV fluids Cont IV zofran Advance diet Replace K+ Repeat K+ level in am Possible dc planning in am if tolerates diet Code(s): R11.10 - VOMITING, UNSPECIFIED
[2017-06-19] MEDS: METOCLOPRAMIDE HCL INJECTION 10 MG/2 ML VIAL IVPB SCH ×3 (00:33→17:37)
[2017-06-19 08:55] LABS: ALBUMIN 3.1 g/dl (3.4-5.0); ALK PHOS 34 U/L (45-117); ANION GAP 9 (8-16); CALCIUM 8.8 mg/dL (8.5-10.1); CO2 25 mmol/L (21-32); CREATININE 0.5 mg/dL (0.55-1.02); GLUCOSE,RANDOM 80 mg/dL (74-106); SGOT/AST 15 U/L (15-37); SGPT/ALT 36 U/L (12-78); TOT PROT 5.8 g/dl (6.4-8.2)
[2017-06-19] MEDS ORDERED: PT OWN MED DRAWER 7, Y5N ONE (11:12)
[2017-06-19] MEDS: RANITIDINE HCL 150 MG TABLET (FP) PO SCH (11:17)
[2017-06-19] MEDS: PYRIDOXINE HCL 100 MG/1 ML VIAL IM SCH (11:17)
[2017-06-19] MEDS: PRENATAL VITAMINS W/ FOLIC ACID TABLET (FP) PO SCH (11:17)
[2017-06-19] MEDS: DEXTROSE 5%-0.45% SALINE 1,000 ML IV SCH (13:30)
[2017-06-19] MEDS ORDERED: [UNRECOGNIZED DRUG - OTHER] IVPB ONE (15:15)
[2017-06-19] MEDS ORDERED: THIAMINE HCL IVPB ONE (15:15)
[2017-06-19] MEDS ORDERED: BISACODYL 10 MG SUPP.RECT RC ONE (15:15)
[2017-06-19] MEDS ORDERED: FOLIC ACID IVPB ONE (15:15)
[2017-06-19] MEDS ORDERED: MULTIVIT IVPB ONE (15:15)
[2017-06-19] MEDS: ONDANSETRON 4 MG/2 ML VIAL IVPUSH SCH ×3 (16:02→22:45)
--- NOTE | 2017-06-19 16:39 | PN ---
GI Progress Note Subjective: spatient is 13 weeks , started to voit again, readjusted medication - Objective Vital Signs: Vital Signs Temperature 98.1 F 06/19/17 14:00 Pulse Rate 93 H 06/19/17 14:00 Respiratory Rate 20 06/19/17 14:00 Blood Pressure 125/82 06/19/17 14:00 O2 Sat by Pulse Oximetry (%) 99 06/19/17 09:00 Constitutional: Well Nourished Labs: CBC, BMP 06/18/17 07:30 06/19/17 07:00 Problem List - Problems (1) Hyperemesis arising during Assessment/Plan: R> IV Zantac, Zofran and Regaln given, advance diet as tolerated Code(s): O21.0 - MILD HYPEREMESIS GRAVIDARUM
[2017-06-19] MEDS: RANITIDINE HCL 50 MG/2 ML VIAL IVPB SCH (21:49)
--- NOTE | 2017-06-19 23:52 | PN ---
Progress Note, Physician - Current Medication List Current Medications: Active Medications Acetaminophen (Tylenol -) 650 mg PO Q4H PRN PRN Reason: FEVER OR PAIN Last Admin: 06/16/17 11:43 Dose: 650 mg Albuterol Sulfate (Ventolin Hfa Inhaler -) 2 puff IH Q4H PRN PRN Reason: ASTHMA Dextrose/Sodium Chloride (D5-1/2ns -) 1,000 mls @ 75 mls/hr IV ASDIR [facility] Last Admin: 06/19/17 13:30 Dose: 75 mls/hr Folic Acid 1 mg/ Multivitamins /Minerals 10 ml/ Thiamine HCl 100 mg/ Sodium Chloride 1,011.2 mls @ 101.12 mls/hr IVPB ONCE ONE Stop: 06/20/17 01:14 Last Admin: 06/19/17 17:30 Dose: 101.12 mls/hr Metoclopramide HCl (Reglan Injection -) 10 mg IVPB Q8H [facility] Last Admin: 06/19/17 17:37 Dose: 10 mg Ondansetron HCl (Zofran Injection) 4 mg IVPUSH Q4H [facility] Stop: 06/20/17 03:16 Last Admin: 06/19/17 22:45 Dose: 4 mg Ondansetron HCl (Zofran Injection) 4 mg IVPUSH Q4H PRN PRN Reason: NAUSEA AND/OR VOMITING Multivit/Folic Acid/Iron ( Vitamins (Sjr) -) 1 tab PO DAILY [facility] Last Admin: 06/19/17 11:17 Dose: Not Given Pyridoxine HCl (Vitamin B6 Injection -) 100 mg IM DAILY [facility] Last Admin: 06/19/17 11:17 Dose: 100 mg Ranitidine HCl (Zantac Injection -) 50 mg IVPB BID [facility] Last Admin: 06/19/17 21:49 Dose: 50 mg - Objective Vital Signs: Vital Signs Temperature 98.6 F 06/19/17 23:04 Pulse Rate 81 06/19/17 23:04 Respiratory Rate 18 06/19/17 23:04 Blood Pressure 122/67 06/19/17 23:04 O2 Sat by Pulse Oximetry (%) 99 06/19/17 21:00 Labs: CBC, BMP 06/18/17 07:30 06/19/17 07:00 Problem List - Problems (1) Intractable vomiting Assessment/Plan: Probably hperemesis of Cont IV fluids Cont IV zofran Advance diet Replace K+ Repeat K+ level in am Possible dc planning in am if tolerates diet Code(s): R11.10 - VOMITING, UNSPECIFIED (2) Hyperemesis arising during Code(s): O21.0 - MILD HYPEREMESIS GRAVIDARUM (3) UTI (urinary tract infection) Code(s): N39.0 - URINARY TRACT INFECTION, SITE NOT SPECIFIED
[2017-06-20] MEDS: DEXTROSE 5%-0.45% SALINE 1,000 ML IV SCH ×2 (00:53→11:34)
[2017-06-20] MEDS: METOCLOPRAMIDE HCL INJECTION 10 MG/2 ML VIAL IVPB SCH ×3 (00:54→16:05)
[2017-06-20] MEDS: ONDANSETRON 4 MG/2 ML VIAL IVPUSH SCH (03:37)
[2017-06-20] MEDS ORDERED: ONDANSETRON 4 MG/2 ML VIAL IVPUSH PRN (07:00)
[2017-06-20] MEDS ORDERED: PT OWN MED DRAWER 7, Y5N ONE ×2 (08:50→22:21)
[2017-06-20] MEDS: PRENATAL VITAMINS W/ FOLIC ACID TABLET (FP) PO SCH ×3 (09:01→11:35)
[2017-06-20] MEDS: PYRIDOXINE HCL 100 MG/1 ML VIAL IM SCH ×2 (09:01→09:10)
[2017-06-20] MEDS: RANITIDINE HCL 50 MG/2 ML VIAL IVPB SCH ×2 (09:02→22:29)
--- NOTE | 2017-06-20 09:59 | PN ---
Progress Note (short form) - Note Progress Note: Medical coverage for Dr. Brower Subjective: The patient was seen and examined at the bedside, she is drinking radha felicia and have clear vomitus next to her from overnight. Current Medications Generic Name Dose Route Start Last Admin Trade Name Freq PRN Reason Stop Dose Admin Acetaminophen 650 mg 06/16/17 11:39 06/16/17 11:43 Tylenol - PO 650 mg Q4H PRN Administration FEVER OR PAIN Albuterol Sulfate 2 puff 06/15/17 00:35 Ventolin Hfa Inhaler - IH Q4H PRN ASTHMA Dextrose/Sodium Chloride 1,000 mls @ 75 mls/hr 06/15/17 00:45 06/20/17 00:53 D5-1/2ns - IV 75 mls/hr ASDIR [facility] Administration Metoclopramide HCl 10 mg 06/18/17 16:30 06/20/17 09:01 Reglan Injection - IVPB 10 mg Q8H [facility] Administration Ondansetron HCl 4 mg 06/20/17 07:00 Zofran Injection IVPUSH Q4H PRN NAUSEA AND/OR VOMITING Multivit/Folic Acid/Iron 1 tab 06/15/17 10:00 06/20/17 09:10 Vitamins (Sjr) - PO Not Given DAILY [facility] Pyridoxine HCl 100 mg 06/16/17 12:45 06/20/17 09:10 Vitamin B6 Injection - IM Not Given DAILY [facility] Ranitidine HCl 50 mg 06/19/17 22:00 06/20/17 09:02 Zantac Injection - IVPB 50 mg BID [facility] Administration Objective: Vital Signs Period Temp Pulse Resp BP Sys/Pitts Pulse Ox Last 24 Hr 98.0 F-98.6 F 77-93 18-20 102-125/55-82 99 Physical Exam: General: NAD Abd: Soft, non-tender, normoactive bowel sounds CBCD WBC 8.0 K/mm3 (4.0-10.0) 06/18/17 07:30 RBC 3.16 M/mm3 (3.60-5.2) L 06/18/17 07:30 Hgb 9.8 GM/dL (10.7-15.3) L 06/18/17 07:30 Hct 28.6 % (32.4-45.2) L 06/18/17 07:30 MCV 90.5 fl (80-96) 06/18/17 07:30 MCHC 34.3 g/dl (32.0-36.0) 06/18/17 07:30 RDW 13.5 % (11.6-15.6) 06/18/17 07:30 Plt Count 172 K/MM3 (134-434) 06/18/17 07:30 MPV 10.2 fl (7.5-11.1) 06/18/17 07:30 CMP Sodium 139 mmol/L (136-145) 06/19/17 07:00 Potassium 3.8 mmol/L (3.5-5.1) 06/19/17 07:00 Chloride 105 mmol/L (98-107) 06/19/17 07:00 Carbon Dioxide 25 mmol/L (21-32) 06/19/17 07:00 Anion Gap 9 (8-16) 06/19/17 07:00 BUN 6 mg/dL (7-18) L D 06/19/17 07:00 Creatinine 0.5 mg/dL (0.55-1.02) L D 06/19/17 07:00 Creat Clearance w eGFR > 60 (>60) 06/19/17 07:00 Random Glucose 80 mg/dL (74-106) 06/19/17 07:00 Calcium 8.8 mg/dL (8.5-10.1) 06/19/17 07:00 Total Bilirubin 1.0 mg/dL (0.2-1.0) D 06/19/17 07:00 AST 15 U/L (15-37) D 06/19/17 07:00 ALT 36 U/L (12-78) 06/19/17 07:00 Alkaline Phosphatase 34 U/L (45-117) L 06/19/17 07:00 Total Protein 5.8 g/dl (6.4-8.2) L 06/19/17 07:00 Albumin 3.1 g/dl (3.4-5.0) L 06/19/17 07:00 Microbiology 06/15/17 14:00 Urine - Urine Clean Catch Urine Culture - Final Strep Agalactiae Group B Assessment: This is a 21 year old female with IUP 13w1d presented to the ED with hyperemesis gravidarum. Plan: 1) Hyperemesis gravidarum - Continue Zofran - Continue Reglan - Continue Pyridoxine - IV fluids - Appreciate GI consult 2) Group B strep bacteriuria - Patient is 13 weeks , 10-20,000 colonies, however had negative urine culture 2 weeks ago. Discussed with Dr. Griffin, will treat - Start Amoxicillin 500mg po bid x7 days 3) F/E/N: - Clear liquid diet, advance per GI - Monitor electrolytes 4) Prophylaxis: - OOB ambulating - SCDs bilaterally 5) Dispo: - Requires continued inpatient care CODE STATUS: FULL CODE Visit type - Emergency Visit Emergency Visit: Yes ED Registration Date: 06/14/17 Care time: The patient presented to the Emergency Department on the above date and was hospitalized for further evaluation of their emergent condition. - New Patient This patient is new to me today: Yes Date on this admission: 06/20/17 - Critical Care Critical Care patient: No
[2017-06-20] MEDS: AMOXICILLIN 500 MG CAPSULE (FP) PO SCH ×2 (11:35→22:29)
--- NOTE | 2017-06-20 13:48 | PN ---
GI Progress Note Subjective: last vomitng episode at 5 am, tolerating clear liquids - Objective Vital Signs: Vital Signs Temperature 98.0 F 06/20/17 08:00 Pulse Rate 83 06/20/17 08:00 Respiratory Rate 18 06/20/17 08:00 Blood Pressure 102/55 06/20/17 08:00 O2 Sat by Pulse Oximetry (%) 99 06/20/17 09:00 Constitutional: Well Nourished Eyes: Yes: Conjunctiva Clear HENT: Yes: Atraumatic Neck: Yes: Supple Cardiovascular: Yes: Regular Rate and Rhythm Respiratory: Yes: CTA Bilaterally ...Palpate: Yes: Soft. No: Firm/Rigid, Guarding, Hepatomegaly, Mass, Pulsatile Mass, Splenomegaly, Tenderness, Tenderness, Epigastium Labs: CBC, BMP 06/18/17 07:30 06/19/17 07:00 Problem List - Problems (1) Hyperemesis arising during Assessment/Plan: continue IV Reglan, Zantac and Zofran advance diet as tolerated Code(s): O21.0 - MILD HYPEREMESIS GRAVIDARUM
[2017-06-21] MEDS: METOCLOPRAMIDE HCL INJECTION 10 MG/2 ML VIAL IVPB SCH ×2 (00:15→09:09)
[2017-06-21] MEDS: DEXTROSE 5%-0.45% SALINE 1,000 ML IV SCH (00:16)
[2017-06-21 06:55] VITALS: BP 101/54; PULSE 75; TEMP 97.8
[2017-06-21 07:53] LABS: MCH 31.2 pg (25.7-33.7); MCHC 34.2 g/dl (32.0-36.0); MEAN CELL VOLUME 91.1 fl (80-96); MEAN PLT VOLUME 10.7 fl (7.5-11.1); PLATELET COUNT 154 K/MM3 (134-434); RDW 13.7 % (11.6-15.6); WHITE BLOOD COUNT 6.5 K/mm3 (4.0-10.0)
[2017-06-21 08:29] LABS: ALBUMIN 2.9 g/dl (3.4-5.0); ALK PHOS 33 U/L (45-117); ANION GAP 9 (8-16); BILIRUBIN,TOTAL 0.9 mg/dL (0.2-1.0); CO2 25 mmol/L (21-32); CREATININE 0.4 mg/dL (0.55-1.02); GLUCOSE,RANDOM 76 mg/dL (74-106); MAGNESIUM 1.8 mg/dL (1.8-2.4); PHOSPHOROUS 3.3 mg/dL (2.5-4.9); SGOT/AST 21 U/L (15-37); SGPT/ALT 41 U/L (12-78); TOT PROT 5.7 g/dl (6.4-8.2)
[2017-06-21] MEDS: AMOXICILLIN 500 MG CAPSULE (FP) PO SCH (09:09)
[2017-06-21] MEDS: PYRIDOXINE HCL 100 MG/1 ML VIAL IM SCH (09:10)
[2017-06-21] MEDS: PRENATAL VITAMINS W/ FOLIC ACID TABLET (FP) PO SCH (09:10)
[2017-06-21] MEDS: RANITIDINE HCL 50 MG/2 ML VIAL IVPB SCH (09:17)
[2017-06-21] MEDS ORDERED: KCL 10 MEQ IVPB 10 MEQ/100 ML INFUS.BAG IVPB SCH (12:30)
[2017-06-21] MEDS ORDERED: POTASSIUM CHLORIDE TABS 20 MEQ TABLET.ER (FP) PO ONE (13:30)
[2017-06-21] MEDS ORDERED: POTASSIUM CHLORIDE 30 MEQ in SODIUM CHLORIDE 300 ML IVPB ONE (13:30)
== END 2017-06-21 17:55 | disposition home or self-care (01) | DRG 566 ==
LOC: JER 11:11 → JERBED 18:58 → J6S 20:43
PROVIDERS: ADMIT Internal Medicine; ATTEND Internal Medicine
DX: O21.0 Mild hyperemesis gravidarum (principal); O23.41 Unspecified infection of urinary tract in pregnancy, first trimester; Z3A.12 12 weeks gestation of pregnancy; R42 Dizziness and giddiness; J45.909 Unspecified asthma, uncomplicated; B95.1 Streptococcus, group B, as the cause of diseases classified elsewhere; R63.4 Abnormal weight loss
CPT/HCPCS: 36415; 76705-TC; 80053; 81003; 83735; 84100; 84702; 85025; 85027; 87086; 87186; 99284-25

== ENCOUNTER 2018-10-30 23:36 | Emergency (ER) | payer SELFPAY ==
--- NOTE | 2018-10-31 00:04 | PDOC ---
History of Present Illness - General Stated Complaint: NAUSE/VOMITTING Time Seen by Provider: 10/31/18 00:04 History Source: Patient Exam Limitations: No Limitations - History of Present Illness Initial Comments: 10/31/18 00:25 23 year old woman with a past medical history of asthma who presents with 4 hours of nonbloody vomiting approx 8x since onset. The patient denies fever, but admits to some upper abdominal cramping/burning. She reports that her 10 month old son had the some vomiting for approx 1-2 days and she took him to the ER this AM. The patient denies diarrhea, dysuria, hematuria, new or changing chest pain from chronic pains, shortness of breath. She admits to some constipation. She denies any recreational drug use, including marijuana, metha, cocaine. She has no other complaints at bedside. Past History - Past Medical History Allergies/Adverse Reactions: Allergies Allergy/AdvReac Type Severity Reaction Status Date / Time No Known Allergies Allergy Verified 10/31/18 00:06 Home Medications: Ambulatory Orders Albuterol Sulfate Inhaler - [Ventolin HFA Inhaler -] 2 inh PO Q4H PRN #1 inhaler 03/10/18 Ondansetron [Zofran -] 4 mg PO BID #14 tablet 10/31/18 Anemia: No Asthma: Yes Cancer: No Cardiac Disorders: No CVA: No COPD: No CHF: No Dementia: No Diabetes: No GI Disorders: No Disorders: No HTN: No Hypercholesterolemia: No Liver Disease: No Seizures: No Thyroid Disease: No - Surgical History Abdominal Surgery: No Appendectomy: No Cardiac Surgery: No Cholecystectomy: No Lung Surgery: No Neurologic Surgery: No Orthopedic Surgery: No - Reproductive History (#): 1 Para: 0 - Immunization History Immunization Up to Date: No - Suicide/Smoking/Psychosocial Hx Smoking History: Never smoked Have you smoked in the past 12 months: No Hx Alcohol Use: No Drug/Substance Use Hx: Yes Substance Use Type: Marijuana Hx Substance Use Treatment: No Review of Systems - Review of Systems Able to Perform ROS?: Yes Is the patient limited [place] proficient: No Constitutional: No: Chills, Diaphoresis, Fever HEENTM: No: Blurred Vision, Tinnitus Respiratory: No: Cough, Orthopnea, Shortness of Breath Cardiac (ROS): No: Chest Pain, Lightheadedness, Palpitations, Syncope ABD/GI: Yes: Constipated, Nausea, Vomiting. No: Diarrhea : No: Burning, Dysuria, Hematuria Musculoskeletal: No: Back Pain Neurological: No: Headache, Numbness, Paresthesia, Tingling *Physical Exam - Physical Exam Comments: 10/31/18 00:34 GENERAL: Awake, alert, and fully oriented, in no acute distress HEAD: No signs of trauma, normocephalic, atraumatic EYES: EOMI, sclera anicteric, conjunctiva clear ENT: oropharynx clear without exudates. Moist mucosa NECK: Normal ROM, supple LUNGS: No distress, speaks full sentences, clear to auscultation bilaterally HEART: Regular rate and rhythm, normal S1 and S2, no murmurs, rubs or gallops, peripheral pulses normal and equal bilaterally. ABDOMEN: Soft, nontender, normoactive bowel sounds. No guarding, no rebound. No masses EXTREMITIES : Normal inspection, Normal range of motion, no edema. No clubbing or cyanosis. NEUROLOGICAL: Cranial nerves II through XII grossly intact. Normal speech, no focal sensorimotor deficits SKIN: Warm, Dry, normal turgor, no rashes or lesions noted ED Treatment Course - LABORATORY CBC & Chemistry Diagram: 10/31/18 00:25 10/31/18 00:25 Medical Decision Making - Medical Decision Making 10/31/18 00:31 23 year old woman with a past medical history of asthma who presents with 4 hours of nonbloody vomiting approx 8x since onset. The patient denies fever, but admits to some upper abdominal cramping/burning. She reports that her 10 month old son had the some vomiting for approx 1-2 days and she took him to the ER this AM. The patient denies diarrhea, dysuria, hematuria, new or changing chest pain from chronic pains, shortness of breath. She admits to some constipation. She denies any recreational drug use, including marijuana, metha, cocaine. She has no other complaints at bedside. LNMP: 10/17/18 ED Course: consider gastroenteritis vs pancreatitis vs cbc, cmp, ua, upreg, lipase 10/31/18 02:01 labwork wnl pending urine patient reassessed with improvement 10/31/18 02:51 labs wnl stable for discharge Given follow up instructions and strict return precautions. Patient expressed understanding and agree to plan. *DC/Admit/Observation/Transfer Diagnosis at time of Disposition: Vomiting, Viral syndrome - Discharge Dispostion Disposition: HOME Condition at time of disposition: Stable Decision to Admit order: No - Prescriptions Prescriptions: Ondansetron [Zofran -] 4 mg PO BID #14 tablet - Referrals - Patient Instructions Printed Discharge Instructions: DI for Vomiting -- Adult Additional Instructions: You were seen in the ED for complaints of vomiting. In the ED you were evaluated with labwork and ultrasound. Your results were unremarkable. There does not appear to be an acute need for immediate hospitalization. You are advised to follow up with your Primary Care Physician within 1 week. You were given a prescription for Zofran anti-nausea medication, please take as directed. Return to the ED immediately if you experience worsening vomiting, blood in the vomit, abdominal pain, diarrhea, blood in the diarrhea, fevers, chest pain or shortness of breath. - Post Discharge Activity
[2018-10-31 00:12] VITALS: BMI 21.7
[2018-10-31] MEDS ORDERED: SODIUM CHLORIDE 1,000 ML IV SCH (00:15)
[2018-10-31] MEDS ORDERED: ONDANSETRON 4 MG/2 ML VIAL IVPUSH ONE (00:15)
[2018-10-31] MEDS ORDERED: FAMOTIDINE 20 MG/50 ML IVPB 20 MG/50 ML MG IVPB ONE ×2 (00:33→00:40)
[2018-10-31] MEDS ORDERED: ACETAMINOPHEN 1000 MG/100 ML VIAL (NON FORMULARY) IVPB ONE (00:35)
[2018-10-31] MEDS ORDERED: ACETAMINOPHEN INJECTION 100 ML IVPB ONE (00:39)
[2018-10-31] MEDS ORDERED: ONDANSETRON 4 MG/2 ML VIAL ONE (00:40)
--- NOTE | 2018-10-31 00:42 | PDOC ---
Attending Attestation - HPI HPI: The patient is a 23 year old female, with a significant PMH of asthma, who presents to the emergency department today complaining of nausea and vomit for one day. Patient notes 8 episodes of NBNB vomit for four hours. She also reports associated abdominal cramping, that is burning in nature. She endorses mild constipation. Patient does note that her 10 month old had similar symptoms for 2 days, for which she brought him to the ED earlier this morning and was told it was viral. The patient denies chest pain, shortness of breath, headache and dizziness. Denies fever, chills, and diarrhea.. Denies dysuria, frequency, urgency and hematuria. Allergies: NKA Past surgical history: None reported Social history: Denies illicit drug use PCP: Does not recall 10/31/18 00:43 - Physicial Exam PE: GENERAL: +Appears worn-out secondary to vomiting. No vomiting blood. Awake, alert, and fully oriented, in no acute distress HEAD: No signs of trauma EYES: PERRLA, EOMI, sclera anicteric, conjunctiva clear ENT: Auricles normal inspection, hearing grossly normal, nares patent, oropharynx clear without exudates. Moist mucosa NECK: Normal ROM, supple, no lymphadenopathy, JVD, or masses LUNGS: Breath sounds equal, clear to auscultation bilaterally. No wheezes, and no crackles HEART: Regular rate and rhythm, normal S1 and S2, no murmurs, rubs or gallops ABDOMEN: Soft, nontender, normoactive bowel sounds. No guarding, no rebound. No masses EXTREMITIES: Normal range of motion, no edema. No clubbing or cyanosis. No cords, erythema, or tenderness NEUROLOGICAL: Cranial nerves II through XII grossly intact. Normal speech, normal gait SKIN: Warm, Dry, normal turgor, no rashes or lesions noted. 10/31/18 00:43 - Medical Decision Making Bedside US: normal study 1:20am Documentation prepared by SOPHIA Lynn, acting as medical file clerk for Danuta Lucio DO. 10/31/18 01:20 <Jeannette Weinstein - Last Filed: 10/31/18 01:20> - Resident Resident Name: Rose Edwards - ED Attending Attestation I have performed the following: I have examined & evaluated the patient, The case was reviewed & discussed with the resident, I agree w/resident's findings & plan, Exceptions are as noted - Medical Decision Making 10/31/18 00:40 I, Dr. Danuta Lucio, DO, attest that this document has been prepared under my direction and personally reviewed by me in its entirety. I further attest, that it accurately reflects all work, treatment, procedures and medical decision -making performed by me. 10/31/18 00:41 a/p: 23yo female with n/v tonight -recent sick contact, her child had similar symptoms 2 nights ago and dx with a viral syndrome -no diarrhea -no abd pain -no fevers -no cp/sob/sore throat -pt states abd cramping just prior to vomiting -will send labs -bedside RUQ sono -zofran, tylenol, pepcid, ivf hyration -will monitor and reassess 10/31/18 01:22 bedside ultasound of the gallbladder- neg for stones, no thickened gb wall, no pericholecystic fluid, neg murphys labs reviewed-pending ua 10/31/18 01:55 pt feeling better tolerated ice chips pending ua, if neg stable for dc to home with zofran <Danuta Lucio - Last Filed: 10/31/18 01:56>
[2018-10-31 00:47] LABS: BASO % 0.5 % (0-2.0); EOS % 0.3 % (0-4.5); HEMOGLOBIN 13.9 GM/dL (10.7-15.3); LYMPH % 5.5 % (8-40); MCH 30.1 pg (25.7-33.7); MCHC 33.1 g/dl (32.0-36.0); NEUT % 88.7 % (42.8-82.8); PLATELET COUNT 193 K/MM3 (134-434); RBC 4.62 M/mm3 (3.60-5.2); RDW 13.4 % (11.6-15.6); WHITE BLOOD COUNT 8.3 K/mm3 (4.0-10.0)
[2018-10-31 01:16] LABS: ALBUMIN 4.4 g/dl (3.4-5.0); ALK PHOS 73 U/L (45-117); ANION GAP 4 MMOL/L (8-16); BILIRUBIN,TOTAL 1.3 mg/dL (0.2-1); BLOOD UREA NITROGEN 12 mg/dL (7-18); CALCIUM 9.2 mg/dL (8.5-10.1); CHLORIDE 103 mmol/L (98-107); CO2 30 mmol/L (21-32); CREATININE 0.7 mg/dL (0.55-1.3); GLUCOSE,RANDOM 91 mg/dL (74-106); POTASSIUM 3.9 mmol/L (3.5-5.1); SGOT/AST 10 U/L (15-37); SGPT/ALT 14 U/L (13-61); SODIUM 138 mmol/L (136-145); TOT PROT 7.8 g/dl (6.4-8.2)
[2018-10-31 02:39] LABS: EPI CELLS 12.9 /HPF (0-5); HCG,QUALITATIVE URINE Negative; URINE APPEARANCE CLOUDY; URINE BACTERIA 337.6 /hpf (NEGATIVE); URINE BILIRUBIN NEGATIVE (NEGATIVE); URINE CASTS 16 /hpf (0-8); URINE COLOR YELLOW; URINE GLUCOSE (UA) NEGATIVE (NEGATIVE); URINE KETONE TRACE (NEGATIVE); URINE LEUK ESTERASE TRACE (NEGATIVE); URINE NITRITE NEGATIVE (NEGATIVE); URINE PROTEIN NEGATIVE (NEGATIVE); URINE RBC 2 /hpf (0-4); URINE WBC 20 /hpf (0-5)
[2018-10-31] MEDS ORDERED: METOCLOPRAMIDE HCL INJECTION 10 MG/2 ML VIAL IVPUSH ONE (03:30)
[2018-10-31] MEDS ORDERED: METOCLOPRAMIDE HCL INJECTION 10 MG/2 ML VIAL ONE (03:36)
[2018-10-31 05:56] VITALS: BP 104/60; PULSE 87; TEMP 99.7
== END 2018-10-31 06:42 | disposition home or self-care (01) ==
LOC: JER 23:36
PROC: 3E033GC Introduction of Other Therapeutic Substance into Peripheral Vein, Percutaneous Approach (ICD-10-PCS; principal; 2018-10-30)
PROC: 3E033GC Introduction of Other Therapeutic Substance into Peripheral Vein, Percutaneous Approach (ICD-10-PCS; 2018-10-30)
PROC: 3E033GC Introduction of Other Therapeutic Substance into Peripheral Vein, Percutaneous Approach (ICD-10-PCS; 2018-10-30)
PROC: 3E033NZ Introduction of Analgesics, Hypnotics, Sedatives into Peripheral Vein, Percutaneous Approach (ICD-10-PCS; 2018-10-30)
DX: B34.9 Viral infection, unspecified (principal)
CPT/HCPCS: 36415; 80053; 81003; 83690; 84703; 85025; 87086; 99283-25; J0131; J7030

== ENCOUNTER 2018-11-12 23:22 | Emergency (ER) | payer SELFPAY ==
--- NOTE | 2018-11-12 23:30 | PDOC ---
History of Present Illness - General Stated Complaint: ASTHMA Time Seen by Provider: 11/12/18 23:29 History Source: Patient Exam Limitations: No Limitations - History of Present Illness Initial Comments: 11/12/18 23:39 23 year old female with PMH asthma, bronchitis BIBA to ED for shortness of breath x2 days associated with runny nose/sore throat/productive cough x1 week. Pt admitted to body aches that relieve with Tylenol/Motrin use. Pt stated she is currently under a lot of emotional stress, stating that she is having issues with her child's father. She stated her symptoms improve when she goes outside in the cold. She also admitted to headache and vomiting after coughing spells. Pt reported she used her rescue inhaler 3X today and her nebulizer without relief of symptoms. Pt was given albuterol neb by EMS. Allergies: NKDA Admitted to marijuana use, last used today Admitted to smoking hookah, 3X a week Admitted to social ETOH use Past History - Past Medical History Allergies/Adverse Reactions: Allergies Allergy/AdvReac Type Severity Reaction Status Date / Time No Known Allergies Allergy Verified 11/12/18 23:27 Home Medications: Ambulatory Orders Albuterol Sulfate Inhaler - [Ventolin HFA Inhaler -] 2 inh PO Q4H PRN #1 inhaler 03/10/18 Ondansetron [Zofran -] 4 mg PO BID #14 tablet 10/31/18 Anemia: No Asthma: Yes Cancer: No Cardiac Disorders: No CVA: No COPD: No CHF: No Dementia: No Diabetes: No GI Disorders: No Disorders: No HTN: No Hypercholesterolemia: No Liver Disease: No Seizures: No Thyroid Disease: No - Surgical History Abdominal Surgery: No Appendectomy: No Cardiac Surgery: No Cholecystectomy: No Lung Surgery: No Neurologic Surgery: No Orthopedic Surgery: No - Reproductive History (#): 1 Para: 0 - Immunization History Immunization Up to Date: No - Suicide/Smoking/Psychosocial Hx Smoking History: Never smoked Have you smoked in the past 12 months: No Hx Alcohol Use: No Drug/Substance Use Hx: Yes Substance Use Type: Marijuana Hx Substance Use Treatment: No Review of Systems - Review of Systems Able to Perform ROS?: Yes Comments:: 11/12/18 23:43 General: admitted to body aches. denied fever, chills, generalized weakness. HEENT: denied sore throat, rhinorrhea, ear pain. Heart: denied chest pain, palpitations, syncope, diaphoresis. Respiratory: admitted to shortness of breath, cough, sputum production, post- tussive vomiting. denied hemoptysis. Abdomen: denied abdominal pain, nausea, diarrhea, constipation, blood in stool. : denied dysuria, increased urinary frequency, hematuria, urinary incontinence , flank pain. Back: denied back pain. Musculoskeletal: denied joint pain, muscle pain, joint swelling. Neurological: admitted to headache. denied dizziness, numbness, tingling, weakness. Skin: denied rash, laceration, abrasion. *Physical Exam - Physical Exam Comments: 11/12/18 23:45 Constitutional: Well-nourished, Well-developed, appearing stated age. HEENT: head is normocephalic, atraumatic. EOMI. PERRLA. no posterior pharyngeal erythema. no tonsillar swelling or exudates bilaterally. right frontal sinus tenderess. Neck: supple. Full ROM. Heart: regular rhythm. no murmurs, rubs or gallops. Lungs: clear to auscultation bilaterally. diminished lung sound to right base. no crackles, rhonchi or wheezing. no stridor. Abdomen: soft, nontender. normal bowel sounds. no rebound, guarding, masses. Extremities: peripheral pulses intact. no lower extremity edema. Neurological: CN 2-12 grossly intact. moves all four extremities. Psych: anxious, crying. awake, alert, oriented x3. follows commands. answers questions appropriately. Medical Decision Making - Medical Decision Making 11/12/18 23:45 23 year old female with above PMH presented to ED for shortness of breath associated with rhinorrhea, sore throat, productive yellow cough, body aches, headache. Initial Vital Signs Temp Pulse Resp BP Pulse Ox 98.3 F 88 20 110/76 99 11/12/18 23:32 11/12/18 23:32 11/12/18 23:32 11/12/18 23:32 11/12/18 23:32 Afebrile. No tachycardia. No tachypnea. Normal BP for age. No hypoxia on room air. Labs ordered: urine testing Imaging ordered: CXR Medications ordered: tylenol 975 mg PO, duonebs x3 11/13/18 01:[address] Lucio's read: no infiltrate. sharp costophrenic angles. no large pneumothorax. no cardiomegaly. Pt reported improvement of SOB with treatment. Pt discharged. Discharge medications: azithromycin *DC/Admit/Observation/Transfer Diagnosis at time of Disposition: Bronchitis, Cough - Discharge Dispostion Condition at time of disposition: Improved Decision to Admit order: No - Referrals - Patient Instructions Printed Discharge Instructions: DI for Acute Bronchitis Additional Instructions: You likely have bronchitis and an exacerbation of your asthma. Your chest X-ray showed no pneumonia. I have sent a prescription to your pharmacy for an antibiotic, steroid and nebulizer solution to your pharmacy. Take as advised on labels. Take Tylenol and/or Motrin over the counter for your pain. Take as advised on labels. Follow up with your primary care doctor in 1-2 days. Return to the Emergency Department for chest pain, shortness of breath, coughing up blood, fever >103F with Tylenol use, Fever>5 days, lightheadedness like you may pass out or any other new, worsening or concerning symptoms. - Post Discharge Activity Forms/Work/School Notes: Back to Work, Back to School
[2018-11-12] MEDS ORDERED: ACETAMINOPHEN 325 MG TABLET (FP) PO ONE (23:40)
[2018-11-12] MEDS ORDERED: ALBUTEROL SO4 2.5/IPRATROPIUM 0.5 INH SOL 3 ML VIAL.NEB. NEB ONE ×2 (23:41→23:47)
[2018-11-12] MEDS ORDERED: AZITHROMYCIN 250 MG TABLET PO ONE (23:41)
[2018-11-12] MEDS ORDERED: AZITHROMYCIN 250 MG TABLET ONE (23:48)
[2018-11-12] MEDS ORDERED: ACETAMINOPHEN 325 MG TABLET (FP) ONE (23:48)
[2018-11-12 23:50] VITALS: BP 110/76; PULSE 88; TEMP 98.3; BMI 21.7
--- NOTE | 2018-11-13 00:26 | PDOC ---
Documentation entered by Ruth Moreno SCRIBE, acting as scribe for Danuta Lucio DO. Danuta Lucio DO: This documentation has been prepared by the Josh saleh Daisy, SCRIBE, under my direction and personally reviewed by me in its entirety. I confirm that the documentation accurately reflects all work, treatment, procedures, and medical decision making performed by me. Attending Attestation - Resident Resident Name: Jocelynn Blake - ED Attending Attestation I have performed the following: I have examined & evaluated the patient, The case was reviewed & discussed with the resident, I agree w/resident's findings & plan - HPI HPI: 11/12/18 23:41 The patient is a 23 YOF with a PMH of asthma and bronchitis who presents to the ER brought in by EMS for shortness of breath for the past 2 days and a one week history of sore throat, nasal congestion, cough productive of yellow sputum and generalized body aches. Patient used 2 pumps of her inhaler at home with no relief. She was also given one neb by EMS en route to the ED. Denies any recent travel or sick contact. She reports significant stressors at home. The patient denies chest pain, and dizziness. Admits to a headache but denies fever, chills, nausea, vomit, diarrhea and constipation. Denies dysuria, frequency, urgency and hematuria. Allergies: NKA Past surgical history: None reported. Social history: No reported alcohol, drug or cigarette use. - Physicial Exam PE: 11/12/18 23:51 ADULT PHYSICAL EXAM Constitutional: Awake, alert, oriented. No acute distress. Head: (+) Right frontal and maxillary sinus tenderness. Eyes: PERRL. EOMI. Conjunctivae are not pale. ENT: Mucous membranes are moist and intact. Posterior pharynx without exudates or erythema. Uvula midline. (+) Nasal congestion. Neck: Supple. Full ROM. No lymphadenopathy. Cardiovascular: Regular rate. Regular rhythm. S1, S2 regular. Distal pulses are 2+ and symmetric. Pulmonary/Chest: (+) Diminished breath sounds at the right base. No wheezing, rales or rhonchi. Abdominal: Soft and non-distended. There is no tenderness. Musculoskeletal: No edema. Full range of motion in all extremities. Radial/ pedal pulses are intact and 2+ bilaterally Skin: Skin is warm and dry. No rashes Neurological: Alert and oriented to person, place, and time. Cranial nerves II- XII are grossly intact. Psychiatric: Good eye contact. Normal interaction, affect and behavior. 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 11/13/18 00:26 pt feeling better after the nebulizer treatment 11/13/18 01:21 cxr clear will dc with abx and steroids for asthma stable for dc to home
[2018-11-13] MEDS ORDERED: predniSONE 20 MG TABLET (UD) PO ONE (01:15)
[2018-11-13] MEDS ORDERED: predniSONE 20 MG TABLET (UD) ONE (01:33)
== END 2018-11-13 01:35 | disposition home or self-care (01) ==
LOC: JER 23:22
PROC: 3E0F7GC Introduction of Other Therapeutic Substance into Respiratory Tract, Via Natural or Artificial Opening (ICD-10-PCS; principal; 2018-11-12)
DX: J40 Bronchitis, not specified as acute or chronic (principal)
CPT/HCPCS: 71046-TC-FY; 84703; 99281-25

== ENCOUNTER 2018-11-16 00:05 | Emergency (ER) | payer SELFPAY ==
[2018-11-16] MEDS ORDERED: ALBUTEROL SO4 2.5/IPRATROPIUM 0.5 INH SOL 3 ML VIAL.NEB. NEB ONE ×2 (00:07→00:09)
--- NOTE | 2018-11-16 00:15 | PDOC ---
History of Present Illness - General Stated Complaint: ASTHMA ATTACK Time Seen by Provider: 11/16/18 00:07 - History of Present Illness Initial Comments: 11/16/18 00:13 The patient is a 23 YOF with a PMH of asthma and bronchitis who presents to the ER brought in by EMS for acute asthma attack. Has been seen and treat in our ER 4 days ago for the same symptoms. She then had reported a 4-day history of shortness of breath and a week of sore throat, nasal congestion, cough productive of yellow sputum and generalized body aches. She was also given one neb by EMS en route to the ED. Denies any recent travel or sick contact. She reports significant stressors at home. The patient denies chest pain, and dizziness. Admits to a headache but denies fever, chills, nausea, vomit, diarrhea and constipation. Denies dysuria, frequency, urgency and hematuria. Allergies: NKA Past surgical history: None reported. Social history: No reported alcohol, drug or cigarette use. Past History - Past Medical History Allergies/Adverse Reactions: Allergies Allergy/AdvReac Type Severity Reaction Status Date / Time No Known Allergies Allergy Verified 11/16/18 00:37 Home Medications: Ambulatory Orders Albuterol Sulfate Inhaler - [Ventolin HFA Inhaler -] 2 inh PO Q4H PRN #1 inhaler 03/10/18 Albuterol 0.083% Nebulizer Jolie [Ventolin 0.083% Nebulizer Soln -] 1 neb NEB Q4H PRN #30 vial 11/13/18 Amoxicillin/Potassium Clav [Augmentin 875-125 Tablet] 1 each PO BID #28 tablet 11/13/18 predniSONE [Deltasone -] 40 mg PO DAILY #8 tablet 11/13/18 Benzonatate [Tessalon Pearls -] 200 mg PO TID #42 cap 11/16/18 Dextromethorphan HBr [Cough Relief] 15 mg PO PRN PRN #1 bottle 11/16/18 Anemia: No Asthma: Yes Cancer: No Cardiac Disorders: No CVA: No COPD: No CHF: No Dementia: No Diabetes: No GI Disorders: No Disorders: No HTN: No Hypercholesterolemia: No Liver Disease: No Seizures: No Thyroid Disease: No - Surgical History Abdominal Surgery: No Appendectomy: No Cardiac Surgery: No Cholecystectomy: No Lung Surgery: No Neurologic Surgery: No Orthopedic Surgery: No - Reproductive History (#): 1 Para: 0 - Immunization History Immunization Up to Date: No - Suicide/Smoking/Psychosocial Hx Smoking History: Never smoked Have you smoked in the past 12 months: No Hx Alcohol Use: No Drug/Substance Use Hx: Yes Substance Use Type: Marijuana Hx Substance Use Treatment: No ED Treatment Course - LABORATORY CBC & Chemistry Diagram: 11/16/18 01:25 11/16/18 01:25 Medical Decision Making - Medical Decision Making 11/16/18 02:12 The patient is a 23 YOF with a PMH of asthma and bronchitis who presents to the ER brought in by EMS for acute asthma attack. Has been seen and treat in our ER 4 days ago for the same symptoms. . Patient currently coughing, however no wheezing appreciated, no fever, this appears consistent with viral bronchitis diagnosis. Will r.o influenza with rapid flu, cardiac etiologies with trops and ekg. Low suspision for PE as the aptient doenst have swollen tender limbs on exam, not on control, no pleuritic chest pain. .5 ativan given for anxiety. Hypokalemia of 3 due to repated albuterol treatment. Will give PO potassium. Xray negative for infiltrates. Reassured the patient this is consistent with bronchitis. ok to go home. Follow up with pcp outpatient. Rx: tessalon pearls and dextrometorphan *DC/Admit/Observation/Transfer Diagnosis at time of Disposition: Acute viral bronchitis - Discharge Dispostion Disposition: HOME Condition at time of disposition: Improved Decision to Admit order: No - Referrals - Patient Instructions Printed Discharge Instructions: DI for Acute Bronchitis Additional Instructions: Come back to the emergency department for any new, worsening or concerning symptoms. 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 Follow up with your primary care provider within the next 3 days. - Post Discharge Activity
[2018-11-16 00:37] VITALS: BMI 32.5
[2018-11-16] MEDS ORDERED: MAGNESIUM SULF 50% (8.12 MEQ/2 ML-1 GM VIAL) IVPB ONE (00:42)
--- NOTE | 2018-11-16 00:44 | PDOC ---
Documentation entered by John Ndiaye SCRIBE, acting as scribe for Shaun Chandra MD. Shaun Chandra MD: This documentation has been prepared by the scribeSenthil Daniel, SCRIBE, under my direction and personally reviewed by me in its entirety. I confirm that the documentation accurately reflects all work, treatment, procedures, and medical decision making performed by me. Attending Attestation - Resident Resident Name: CalliSergey - ED Attending Attestation I have performed the following: I have examined & evaluated the patient, The case was reviewed & discussed with the resident, I agree w/resident's findings & plan, Exceptions are as noted - HPI HPI: 11/16/18 00:36 The patient is a 23 year old female with a past medical history of asthma and bronchitis brought in today by EMS for evaluation of shortness of breath. The patient reports that she has been having shortness of breath which is worth with lying down and cough for the past 2 days. The patient was seen 4 days ago for similar symptoms, was diagnosed with bronchitis, and given prednisone. The patient felt better initially after leaving the hospital but began to get worse yesterday. Patient denies headache, lightheadedness. Denies fever, chills. Denies chest pain. Denies nausea, vomiting, diarrhea, abdominal pain. Allergies: NKA - Physicial Exam PE: 11/16/18 00:45 GENERAL: Awake, alert, and fully oriented, in no acute distress. + anxious HEAD: No signs of trauma EYES: EOMI, sclera anicteric, conjunctiva clear ENT: Auricles normal inspection, hearing grossly normal, nares patent, +nasal congestion NECK: Normal ROM, supple, LUNGS: Breath sounds equal, clear to auscultation bilaterally. No wheezes, and no crackles HEART: Regular rate and rhythm, normal S1 and S2, no murmurs, rubs or gallops ABDOMEN: Soft, nontender, No guarding, no rebound. No masses EXTREMITIES: Normal range of motion, no edema. No clubbing or cyanosis. No cords, erythema, or tenderness NEUROLOGICAL: Cranial nerves II through XII grossly intact. Normal speech SKIN: Warm, Dry, normal turgor, no rashes or lesions noted. - Medical Decision Making 11/16/18 00:46 A portion of this note was documented by scribe services under my direction. I have reviewed the details of the note, within reason, and agree with the documentation with the following case summary and management plan written by me. Patient treated in the ED. Nursing notes are reviewed and incorporated into the medical decision-making. Vital signs reviewed. Peripheral IV access obtained by the nurse, laboratory studies are drawn and sent, reviewed and interpreted by myself. Vital Signs Temp Pulse Resp BP Pulse Ox 98.4 F 86 14 112/63 100 11/16/18 00:21 11/16/18 00:21 11/16/18 00:21 11/16/18 00:21 11/16/18 00:21 23-year-old female patient with past medical history of asthma returns emerged from shortness of breath. The patient was here several days ago for shortness of breath. She was diagnosed with an asthma attack and started on prednisone and antibiotics. Patient reports adherence to her medications. However, the patient reports feeling persistent short of breath and thinks she is wheezing. No fevers or chills. Patient does report that she feels anxious and reports that she is under a lot of stress. Patient's lung sounds are clear the patient does appear visibly anxious to me. She is coughing frequently throughout the exam. We'll treat would do a nabs and give IV magnesium. However, we'll obtain a chest x-ray, EKG, troponin and BNP to rule out other etiologies. If workup is negative, and the patient's lungs continue remain clear and the patient feels better with the Ativan, I suspect that the patient does have bronchitis and potentially some elements of anxiety. Reassess. 11/16/18 01:47 CBC, BMP 11/16/18 01:25 Pt was signed out to Dr. Garnica for further management and disposition. Heart Score/ECG Review #1 ECG reviewed & interpreted by me at: 01:20 11/16/18 01:33 NSR 78, no std/arleen, normal axis, normal intervals, QTC 444 msec
[2018-11-16 01:33] LABS: BASO % 0.6 % (0-2.0); EOS % 0.6 % (0-4.5); HEMATOCRIT 34.9 % (32.4-45.2); HEMOGLOBIN 11.6 GM/dL (10.7-15.3); LYMPH % 21.8 % (8-40); MCH 29.9 pg (25.7-33.7); MCHC 33.2 g/dl (32.0-36.0); MEAN CELL VOLUME 90.1 fl (80-96); MEAN PLT VOLUME 9.2 fl (7.5-11.1); MONO % 9.4 % (3.8-10.2); NEUT % 67.6 % (42.8-82.8); PLATELET COUNT 261 K/MM3 (134-434); RBC 3.88 M/mm3 (3.60-5.2); RDW 13.3 % (11.6-15.6); WHITE BLOOD COUNT 9.1 K/mm3 (4.0-10.0)
[2018-11-16] MEDS ORDERED: LORazepam 2 MG/ML SDV VIAL ONE (01:40)
[2018-11-16] MEDS ORDERED: MAGNESIUM SULF 50% (8.12 MEQ/2 ML-1 GM VIAL) ONE (01:49)
[2018-11-16] MEDS ORDERED: SODIUM CHLORIDE FOR INHALATION 3 ML VIAL.NEB IH ONE (01:49)
[2018-11-16 02:03] LABS: ALBUMIN 3.5 g/dl (3.4-5.0); ALK PHOS 62 U/L (45-117); ANION GAP 8 MMOL/L (8-16); BILIRUBIN,TOTAL 0.5 mg/dL (0.2-1); BLOOD UREA NITROGEN 7 mg/dL (7-18); CALCIUM 8.6 mg/dL (8.5-10.1); CHLORIDE 108 mmol/L (98-107); CO2 24 mmol/L (21-32); CREATININE 0.8 mg/dL (0.55-1.3); GLUCOSE,RANDOM 109 mg/dL (74-106); MAGNESIUM 1.8 mg/dL (1.8-2.4); SGOT/AST 9 U/L (15-37); SGPT/ALT 16 U/L (13-61); SODIUM 140 mmol/L (136-145); TOT PROT 6.9 g/dl (6.4-8.2)
[2018-11-16] MEDS ORDERED: POTASSIUM CHLORIDE ORAL LIQUID 20 MEQ/15 ML PO ONE (02:05)
[2018-11-16] MEDS ORDERED: POTASSIUM CHLORIDE ORAL LIQUID 20 MEQ/15 ML ONE (02:16)
[2018-11-16 02:39] VITALS: BP 114/76; PULSE 96; TEMP 98.7
--- NOTE | 2018-11-16 12:57 | EKG ---
Test Reason : Blood Pressure : / mmHG Vent. Rate : 078 BPM Atrial Rate : 078 BPM P-R Int : 160 ms QRS Dur : 094 ms QT Int : 390 ms P-R-T Axes : 068 049 023 degrees QTc Int : 444 ms NORMAL SINUS RHYTHM NORMAL ECG Confirmed by MD RAMBO, JANICE ([id number]) on 11/16/2018 12:57:04 PM Referred By: Confirmed By:JANICE RICKS MD
== END 2018-11-16 03:06 | disposition home or self-care (01) ==
LOC: JER 00:05
PROC: 3E0F7GC Introduction of Other Therapeutic Substance into Respiratory Tract, Via Natural or Artificial Opening (ICD-10-PCS; principal; 2018-11-16)
PROC: 3E033NZ Introduction of Analgesics, Hypnotics, Sedatives into Peripheral Vein, Percutaneous Approach (ICD-10-PCS; 2018-11-16)
DX: J20.9 Acute bronchitis, unspecified (principal); E87.6 Hypokalemia; J45.909 Unspecified asthma, uncomplicated
CPT/HCPCS: 36415; 71045-TC-FY; 80053; 83735; 84484; 84703; 85025; 87804; 93005; 93010; 99282-25

== ENCOUNTER 2020-02-11 16:13 | Emergency (ER) | payer OTHER ==
--- NOTE | 2020-02-11 16:18 | PDOC ---
Rapid Medical Evaluation Time Seen by Provider: 02/11/20 16:15 Medical Evaluation: Allergies Allergy/AdvReac Type Severity Reaction Status Date / Time No Known Allergies Allergy Verified 11/16/18 00:37 02/11/20 16:16 I have performed a brief in-person evaluation of this patient. CC: chest pain x1 week PE: No focal findings Orders: ekg, cxr Patient will proceed to ED for further evaluation. Discharge Disposition - Diagnosis Chest pain - Referrals - Patient Instructions - Post Discharge Activity
[2020-02-11 16:23] VITALS: BP 110/64; PULSE 82; TEMP 98.7; BMI 21.7
[2020-02-11] MEDS ORDERED: hydrOXYzine PAMOATE 50 MG CAPSULE (FP) PO ONE (17:32)
--- NOTE | 2020-02-11 17:35 | PDOC ---
History of Present Illness - General Chief Complaint: Chest Pain Stated Complaint: CHEST PAIN Time Seen by Provider: 02/11/20 16:15 History Source: Patient Exam Limitations: Clinical Condition - History of Present Illness Initial Comments: 02/11/20 17:37 Patient with past medical history of anxiety being seen by psychologist present with complaint of 2 months history of intermittent chest pain with numbness and tingling sensation to fingers and pressure in the chest radiating up the neck. Patient reported has had work-up done by PCP and was told everything was normal and was being referred to psychologist as PCP thinks symptoms was anxiety related. Patient report symptoms been progressively getting frequent so she came to have herself checked as she was already here with her boyfriend who is being seen in the ED. Denies nausea, vomiting, sweats, difficulty breathing, fever, chills. Patient has not taken anything for symptoms Is this a multiple visit Asthma Patient?: No Timing/Duration: intermittent, other (2 months) Severity: mild Past History - Medical History Allergies/Adverse Reactions: Allergies Allergy/AdvReac Type Severity Reaction Status Date / Time No Known Allergies Allergy Verified 11/16/18 00:37 Home Medications: Ambulatory Orders Albuterol Sulfate Inhaler - [Ventolin HFA Inhaler -] 2 inh PO Q4H PRN #1 inhaler 03/10/18 Albuterol 0.083% Nebulizer Jolie [Ventolin 0.083% Nebulizer Soln -] 1 neb NEB Q4H PRN #30 vial 11/13/18 Amoxicillin/Potassium Clav [Augmentin 875-125 Tablet] 1 each PO BID #28 tablet 11/13/18 predniSONE [Deltasone -] 40 mg PO DAILY #8 tablet 11/13/18 Benzonatate [Tessalon Pearls -] 200 mg PO TID #42 cap 11/16/18 Dextromethorphan HBr [Cough Relief] 15 mg PO PRN PRN #1 bottle 11/16/18 hydrOXYzine PAMOATE [Vistaril -] 25 mg PO Q8H PRN #16 capsule 02/11/20 Anemia: No Asthma: Yes Cancer: No Cardiac Disorders: No CVA: No COPD: No CHF: No Dementia: No Diabetes: No GI Disorders: No Disorders: No HTN: No Hypercholesterolemia: No Liver Disease: No Seizures: No Thyroid Disease: No - Surgical History Abdominal Surgery: No Appendectomy: No Cardiac Surgery: No Cholecystectomy: No Lung Surgery: No Neurologic Surgery: No Orthopedic Surgery: No - Reproductive History (#): 1 Para: 0 - Immunization History Immunization Up to Date: No - Psycho-Social/Smoking History Smoking History: Never smoked Have you smoked in the past 12 months: No - Substance Abuse Hx (Audit-C & DAST Scrn) How often the patient has a drink containing alcohol: Never Score: In Men: 4 or > Positive; In Women: 3 or > Positive: 0 Screen Result (Pos requires Nsg. Audit-10AR): Negative In the last yr the pt used illegal drug/Rx for NonMed reason: Yes Score: Yes response is considered Positive: 1 Screen Result (Positive result requires Nsg. DAST-10): Positive Review of Systems - Review of Systems Able to Perform ROS?: Yes Is the patient limited Wolof proficient: No Constitutional: No: Chills, Fever, Malaise HEENTM: No: Symptoms Reported, See HPI, Eye Pain, Blurred Vision, Tearing, Recent change in vision, Double Vision, Cataracts, Ear Pain, Ocular Prothesis, Ear Discharge, Nose Pain, Nose Congestion, Tinnitus, Nose Bleeding, Hearing Loss, Throat Pain, Throat Swelling, Mouth Pain, Dental Problems, Difficulty Swallowing, Mouth Swelling, Other Respiratory: No: Symptoms reported, See HPI, Cough, Orthopnea, Shortness of Breath, SOB with Exertion, SOB at Rest, Stridor, Wheezing, Productive cough, Hemoptysis, Other Cardiac (ROS): Yes: Symptoms Reported, See HPI, Chest Pain (midsternal chest pressure). No: Edema, Irregular Heart Rate, Lightheadedness, Palpitations, Syncope, Chest Tightness, Other ABD/GI: No: Symptoms Reported, Nausea, Vomiting Musculoskeletal: No: Symptoms Reported Integumentary: No: Symptoms Reported Neurological: Yes: Tingling (in b/l fingers). No: Symptoms reported, Headache, Numbness, Paresthesia, Pre-Existing Deficit, Weakness, Unsteady Gait, Dizziness Psychiatric: Yes: Anxiety. No: Depression, Frequent Crying All Other Systems: Reviewed and Negative *Physical Exam - Vital Signs Last Vital Signs Temp Pulse Resp BP Pulse Ox 98.7 F 82 17 110/64 100 02/11/20 16:16 02/11/20 16:16 02/11/20 16:16 02/11/20 16:16 02/11/20 16:16 - Physical Exam 02/11/20 17:40 GENERAL: Well developed, well nourished. Awake and alert. No acute distress. HEENT: Normocephalic, atraumatic. PERRLA, EOMI. No conjunctival pallor. Sclera are non-icteric. Moist mucous membranes. Oropharynx is clear. NECK: Supple. Full ROM. CARDIOVASCULAR: Regular rate and rhythm. No murmurs, rubs, or gallops. Distal pulses are 2+ and symmetric. PULMONARY: No evidence of respiratory distress. Lungs clear to auscultation bilaterally. No wheezing, rales or rhonchi. ABDOMINAL: Soft. Non-tender. Non-distended. No rebound or guarding. No organomegaly. Normoactive bowel sounds. MUSCULOSKELETAL Normal range of motion at all joints. EXTREMITIES: No cyanosis. No clubbing. No edema. No calf tenderness. SKIN: Warm and dry. Normal capillary refill. No rashes. No jaundice. NEUROLOGICAL: Alert, awake, appropriate. Gait is normal without ataxia. PSYCHIATRIC: Cooperative. Good eye contact. Appropriate mood General Appearance: Yes: Nourished, Appropriately Dressed. No: Apparent Distress Medical Decision Making - Medical Decision Making 02/11/20 17:38 Patient with past medical history of anxiety being seen by psychologist present with complaint of 2 months history of intermittent chest pain with numbness and tingling sensation to fingers and pressure in the chest radiating up the neck. Patient reported has had work-up done by PCP and was told everything was normal and was being referred to psychologist as PCP thinks symptoms was anxiety related. Patient report symptoms been progressively getting frequent so she came to have herself checked as she was already here with her boyfriend who is being seen in the ED. Denies nausea, vomiting, sweats, difficulty breathing, fever, chills. Patient has not taken anything for symptoms Clinical exam unremarkable. Normal cardio and lung exam. Patient in no acute distress and sitting in the chair comfortably talking to her boyfriend. Patient afebrile. EKG done outside shows no acute abnormality. Checks x-ray done shows no acute normality or pathology. Patient symptoms likely anxiety related. Vistaril 50 mg p.o. ordered for anxiety. Patient stable for discharge with strict follow-up instructions with jackerman and her physical therapist for anxiety Discharge - Discharge Information Problems reviewed: Yes Clinical Impression/Diagnosis: Anxiety Chest pain Qualifiers: Chest pain type: unspecified Qualified Code(s): R07.9 - Chest pain, unspecified Condition: Stable Disposition: HOME - Admission No - Additional Discharge Information Prescriptions: hydrOXYzine PAMOATE [Vistaril -] 25 mg PO Q8H PRN #16 capsule PRN Reason: Anxiety - Follow up/Referral Referrals: Zhang Ramirez MD [Staff Physician] - - Patient Discharge Instructions Patient Printed Discharge Instructions: DI for Anxiety -- Adult Additional Instructions: Your EKG was normal. Your chest x-ray is normal as well. Your symptoms likely from anxiety. Take prescribed medication as needed for anxiety. Follow-up referred jackerman for work-up and follow-up with your therapist as scheduled - Post Discharge Activity
[2020-02-11] MEDS ORDERED: hydrOXYzine PAMOATE 50 MG CAPSULE (FP) ONE (18:16)
--- NOTE | 2020-02-12 10:28 | EKG ---
Test Reason : Blood Pressure : / mmHG Vent. Rate : 070 BPM Atrial Rate : 070 BPM P-R Int : 150 ms QRS Dur : 090 ms QT Int : 374 ms P-R-T Axes : 057 063 054 degrees QTc Int : 403 ms NORMAL SINUS RHYTHM NORMAL ECG WHEN COMPARED WITH ECG OF 16-NOV-2018 01:19, NONSPECIFIC T WAVE ABNORMALITY NO LONGER EVIDENT IN INFERIOR LEADS Confirmed by JAZMIN SULLIVAN MD ([id number]) on 02/12/2020 10:28:07 AM Referred By: Confirmed By:JAZMIN SULLIVAN MD
== END 2020-02-11 18:05 | disposition home or self-care (01) ==
LOC: JER 16:13
DX: F41.9 Anxiety disorder, unspecified (principal); R07.9 Chest pain, unspecified
CPT/HCPCS: 71046-TC-FY; 93005; 93010; 99284-25

== ENCOUNTER 2020-03-06 13:32 | Emergency (ER) | payer OTHER ==
[2020-03-06 13:55] VITALS: BMI 20.9
--- NOTE | 2020-03-06 14:12 | PDOC ---
History of Present Illness - General Chief Complaint: Vomiting/Diarrhea Stated Complaint: VOMITING, DIARRHEA Time Seen by Provider: 03/06/20 14:11 History Source: Patient Exam Limitations: No Limitations - History of Present Illness Initial Comments: 03/06/20 14:11 Sabine Oro is a 24F with PMH asthma presenting with nausea, vomiting, and diarrhea. Patient has been living with boyfriend/father of her child last 3 days, 2 days in started having fever, chills, nausea, vomiting, dizziness. Diarrhea has stopped, but poorly tolerating PO, nausea with eating, mild abd pain. Came home yesterday, her 2 year old son also having same symptoms. Lives with parents and brother, no sick contacts at home. Boyfriend has allergy symptoms but no other covid-19 symptoms. Patient denies urinary sx, vaginal bleeding/discharge. LMP 3 weeks ago, formerly on Nexplanon but had it removed, had Depo-Provera shot 4 days ago, but has had uprotected sex in the last 3 weeks. NKDA. No PSH. PMH asthma on albuterol, has been taking more recently without effectiveness. Smokes marijuana daily for last 5 years, denies recent alcohol/drug use. Past History - Medical History Allergies/Adverse Reactions: Allergies Allergy/AdvReac Type Severity Reaction Status Date / Time No Known Allergies Allergy Verified 03/06/20 13:52 Home Medications: Ambulatory Orders Albuterol Sulfate Inhaler - [Ventolin HFA Inhaler -] 2 inh PO Q4H PRN #1 inhaler 03/10/18 Albuterol 0.083% Nebulizer Jolie [Ventolin 0.083% Nebulizer Soln -] 1 neb NEB Q4H PRN #30 vial 11/13/18 Amoxicillin/Potassium Clav [Augmentin 875-125 Tablet] 1 each PO BID #28 tablet 11/13/18 predniSONE [Deltasone -] 40 mg PO DAILY #8 tablet 11/13/18 Benzonatate [Tessalon Pearls -] 200 mg PO TID #42 cap 11/16/18 Dextromethorphan HBr [Cough Relief] 15 mg PO PRN PRN #1 bottle 11/16/18 hydrOXYzine PAMOATE [Vistaril -] 25 mg PO Q8H PRN #16 capsule 02/11/20 Ondansetron [Zofran *Odt*] 4 mg SL BID #8 od.tablet 03/06/20 Anemia: No Asthma: Yes Cancer: No Cardiac Disorders: No CVA: No COPD: No CHF: No Dementia: No Diabetes: No GI Disorders: No Disorders: No HTN: No Hypercholesterolemia: No Liver Disease: No Seizures: No Thyroid Disease: No - Surgical History Abdominal Surgery: No Appendectomy: No Cardiac Surgery: No Cholecystectomy: No Lung Surgery: No Neurologic Surgery: No Orthopedic Surgery: No - Reproductive History Is Patient Now?: No (#): 1 Para: 0 - Immunization History Immunization Up to Date: No - Psycho-Social/Smoking History Smoking History: Never smoked Have you smoked in the past 12 months: No - Substance Abuse Hx (Audit-C & DAST Scrn) How often the patient has a drink containing alcohol: Never Score: In Men: 4 or > Positive; In Women: 3 or > Positive: 0 Screen Result (Pos requires Nsg. Audit-10AR): Negative In the last yr the pt used illegal drug/Rx for NonMed reason: No Score: Yes response is considered Positive: 0 Screen Result (Positive result requires Nsg. DAST-10): Negative Review of Systems - Review of Systems Able to Perform ROS?: Yes Constitutional: Yes: Chills, Fever, Malaise HEENTM: No: Symptoms Reported Respiratory: Yes: Cough, Shortness of Breath. No: SOB with Exertion, SOB at Rest, Wheezing, Productive cough Cardiac (ROS): Yes: Lightheadedness. No: Chest Pain ABD/GI: Yes: Diarrhea, Nausea, Poor Appetite, Poor Fluid Intake, Vomiting, Abdominal cramping. No: Constipated : No: Burning, Dysuria, Discharge, Frequency, Flank Pain, Hematuria, Incontinence Musculoskeletal: Yes: Muscle Pain, Muscle Weakness Integumentary: No: Symptoms Reported Neurological: No: Symptoms reported Endocrine: No: Symptoms Reported Hematologic/Lymphatic: No: Symptoms Reported All Other Systems: Reviewed and Negative *Physical Exam - Vital Signs Last Vital Signs Temp Pulse Resp BP Pulse Ox 99.1 F 92 H 16 124/84 100 03/06/20 13:41 03/06/20 13:41 03/06/20 13:41 03/06/20 13:41 03/06/20 13:41 - Physical Exam General Appearance: Yes: Nourished, Appropriately Dressed, Other (curled up in bed). No: Apparent Distress HEENT: positive: EOMI, ELIJAH, Normal Voice, Symmetrical, Pharynx Normal, Hearing Grossly Normal. negative: Scleral Icterus (R), Scleral Icterus (L), Muffled/Hoarse voice, Pharyngeal Erythema, Tonsillar Exudate, Tonsillar Erythema Neck: positive: Trachea midline, Normal Thyroid, Supple. negative: Tender, Rigid, Decreased range of motion, Lymphadenopathy (L), Tender lateral, Tender midline Respiratory/Chest: positive: Lungs Clear, Normal Breath Sounds. negative: Chest Tender, Respiratory Distress, Accessory Muscle Use, Crackles, Rales, Rhonchi, Stridor, Wheezing Cardiovascular: positive: Regular Rhythm, Regular Rate. negative: Murmur Gastrointestinal/Abdominal: positive: Normal Bowel Sounds, Flat, Soft. negative: Tender, Organomegaly, Pulsatile Mass, Guarding, Rebound, Hernia Extremity: positive: Normal Capillary Refill, Normal Inspection, Normal Range of Motion, Pelvis Stable. negative: Tender Integumentary: positive: Normal Color, Warm, Diaphoresis (mostly palms) Neurologic: positive: Fully Oriented, Alert, Normal Mood/Affect, Normal Response, Other (gait normal) ED Treatment Course - LABORATORY CBC & Chemistry Diagram: 03/06/20 02:15 03/06/20 02:15 Medical Decision Making - Medical Decision Making 03/06/20 18:11 Patient is an otherwise healthy 24F here for 2 days of N/V/D and F/C/myalgias. Presentation consistent with gastroenteritis vs. covid-19 vs strep vs. pancrea titis vs. -related problem. Ordered CMP/CBC/lipase/coags/UA/UC/serum preg for comprehensive evaluation. Covid-19 and Rapid strep ordered. Ordered 1L NS, Ofirmev, Zofra, Pepcid, Maalox for symptom relief. Labs notable for: - WBC 13, mild elevation - Coags WNL - CMP WNL - UA some LE but high contamination, patient asymptomatic - strep negative Patient feeling much better after GI cocktail and IVF. Labs all WNL. VSS. Will discharge home with Zofran SL, covid-19 precautions, and PMD f/u. Discharge - Discharge Information Problems reviewed: Yes Clinical Impression/Diagnosis: Suspected 2019 novel coronavirus infection Nausea & vomiting Qualifiers: Vomiting type: unspecified Vomiting Intractability: non-intractable Qualified Code(s): R11.2 - Nausea with vomiting, unspecified Condition: Improved Disposition: HOME - Admission No - Additional Discharge Information Prescriptions: Ondansetron [Zofran *Odt*] 4 mg SL BID #8 od.tablet - Follow up/Referral Referrals: Anahy Al NP [Primary Care Provider] - - Patient Discharge Instructions Patient Printed Discharge Instructions: DI for Viral Gastroenteritis -- Adult, [facility] COVID-19 Isolation Protocol Additional Instructions: Today you were evaluated for nausea and vomiting. Your symptoms are either being caused by food poisoning or covid-19 infection. Your labs are normal. Your urine results are normal. You felt better after some IV fluids and Zofran, Maalox, and Ofirmev. You do not have strep throat. Your covid-19 test will come back in the next few days, and you will be called about the results. Assume you have covid- 19 and self-isolate for the next 14 days. Avoid contact with anyone at risk of getting the virus. See your primary doctor in the next week for further care. Take Tylenol or Motrin as indicated on the bottle for fevers and bodyaches. If you experience any worsening fever, nausea, vomiting, chest pain, difficulty breathing, difficulty breathing, or any other new or concerning symptoms, please return to the emergency room. - Post Discharge Activity Work/Back to School Note: Back to Work
[2020-03-06] MEDS ORDERED: ACETAMINOPHEN 1000 MG/100 ML VIAL (NON FORMULARY) IVPB ONE (14:13)
[2020-03-06] MEDS ORDERED: FAMOTIDINE 20 MG/50 ML IVPB 20 MG/50 ML MG IVPB ONE (14:13)
[2020-03-06] MEDS ORDERED: MAG HYDROX/AL HYDROX/SIMETH 30 ML UNIT-DOSE CUP PO ONE (14:13)
[2020-03-06] MEDS ORDERED: ONDANSETRON 4 MG/2 ML VIAL IVPUSH ONE (14:13)
[2020-03-06] MEDS ORDERED: ACETAMINOPHEN INJECTION 100 ML IVPB ONE (14:18)
[2020-03-06] MEDS ORDERED: MAG HYDROX/AL HYDROX/SIMETH 30 ML UNIT-DOSE CUP ONE (14:19)
[2020-03-06] MEDS ORDERED: SODIUM CHLORIDE 0.9% 500 ML INFUS.BAG IV ONE (14:33)
[2020-03-06 14:42] LABS: BASO % 0.4 % (0-2.0); EOS % 1.2 % (0-4.5); HEMATOCRIT 40.3 % (32.4-45.2); HEMOGLOBIN 13.4 GM/dL (10.7-15.3); LYMPH % 9.1 % (8-40); MCH 30.6 pg (25.7-33.7); MCHC 33.2 g/dl (32.0-36.0); MEAN CELL VOLUME 92.1 fl (80-96); MEAN PLT VOLUME 10.6 fl (7.5-11.1); MONO % 6.5 % (3.8-10.2); NEUT % 82.8 % (42.8-82.8); PLATELET COUNT 170 K/MM3 (134-434); RBC 4.38 M/mm3 (3.60-5.2); WHITE BLOOD COUNT 13.3 K/mm3 (4.0-10.0)
[2020-03-06 14:50] LABS: INR 1.28 (0.83-1.09); PROTHROMBIN TIME (PATIENT) 15.2 SEC (9.7-13.0)
[2020-03-06 14:53] LABS: ACTIVATED PTT 29.7 SECONDS (25.2-36.5)
[2020-03-06 15:14] LABS: EPI CELLS >36 /uL (0-25.1); HYALINE CASTS 8 /uL (0-3.1); PH,URINE >= 9.0 (5.0-8.0); URINE APPEARANCE CLEAR; URINE BACTERIA 73 /uL (0-1359); URINE BILIRUBIN NEGATIVE (NEGATIVE); URINE COLOR YELLOW; URINE GLUCOSE (UA) NEGATIVE (NEGATIVE); URINE KETONE NEGATIVE (NEGATIVE); URINE LEUK ESTERASE 2+ (NEGATIVE); URINE NITRITE NEGATIVE (NEGATIVE); URINE PROTEIN TRACE (NEGATIVE); URINE RBC 24 /uL (0-23.9); URINE WBC 162 /uL (0-25.8)
[2020-03-06 15:18] LABS: ALBUMIN 4.3 g/dl (3.4-5.0); BILIRUBIN,TOTAL 1.4 mg/dL (0.2-1); BLOOD UREA NITROGEN 10.1 mg/dL (7-18); CALCIUM 9.4 mg/dL (8.5-10.1); CREATININE 0.8 mg/dL (0.55-1.3); MAGNESIUM 2.3 mg/dL (1.8-2.4); POTASSIUM 4.3 mmol/L (3.5-5.1); TOT PROT 7.8 g/dl (6.4-8.2)
[2020-03-06 17:16] VITALS: BP 108/66; PULSE 71; TEMP 99
--- NOTE | 2020-03-06 17:43 | PDOC ---
Documentation entered by Emma Barboza SCRIBE, acting as scribe for Samina Rae MD. Samina Rae MD: This documentation has been prepared by the keilaibeJabari Ana, SCRIBE, under my direction and personally reviewed by me in its entirety. I confirm that the documentation accurately reflects all work, treatment, procedures, and medical decision making performed by me. Attending Attestation - Resident Resident Name: Rc Wolfe - ED Attending Attestation I have performed the following: I have examined & evaluated the patient, The case was reviewed & discussed with the resident, I agree w/resident's findings & plan, Exceptions are as noted - HPI HPI: 03/06/20 14:17 Patient is a 24 year old female with a significant past medical history of smoking (marijuana every day for past 5 years), anxiety, asthma, and bronchitis, who presents to the ED with vomiting and diarrhea x2 days. Patient stated she has been having fever, chills, dizziness, nausea, and vomiting and that diarrhea has stopped prior to ED arrival. Patient reports that her 2 year old son has been having simiiar symptoms. Patient disclosed she has had unprotected sex in the last 3 weeks. Patient endorses: nausea with eating and mild abdominal pain. Patient denies: any urinary issues, vaginal bleeding, abnormal discharge, alcohol intake, or any other related symptoms. Allergies: NKDA - Physicial Exam PE: 03/06/20 17:40 Agree with resident exam. patient is alert and oriented and in no acute distress. Lungs are clear. Heart regular rate and rhythm. Abdomen soft, non tender, non distended without guarding or rebound. 03/06/20 19:23 - Medical Decision Making 03/06/20 19:24 Pt presents to the ED complaining of viral URI symptoms, along with diarrhea, N/V. Labs are within normal limits. DIfferential includes COVID, other viral URI. COVID test pending. Will discharge with isolation precautions. Discharge - Discharge Information Problems reviewed: Yes Clinical Impression/Diagnosis: Suspected 2019 novel coronavirus infection Nausea & vomiting Qualifiers: Vomiting type: unspecified Vomiting Intractability: non-intractable Qualified Code(s): R11.2 - Nausea with vomiting, unspecified Condition: Improved Disposition: HOME - Additional Discharge Information Prescriptions: Ondansetron [Zofran *Odt*] 4 mg SL BID #8 od.tablet - Follow up/Referral Referrals: Anahy Al NP [Primary Care Provider] - - Patient Discharge Instructions Patient Printed Discharge Instructions: DI for Viral Gastroenteritis -- Adult, [facility] COVID-19 Isolation Protocol Additional Instructions: Today you were evaluated for nausea and vomiting. Your symptoms are either being caused by food poisoning or covid-19 infection. Your labs are normal. Your urine results are normal. You felt better after some IV fluids and Zofran, Maalox, and Ofirmev. You do not have strep throat. Your covid-19 test will come back in the next few days, and you will be called about the results. Assume you have covid- 19 and self-isolate for the next 14 days. Avoid contact with anyone at risk of getting the virus. See your primary doctor in the next week for further care. T virgie Tylenol or Motrin as indicated on the bottle for fevers and bodyaches. If you experience any worsening fever, nausea, vomiting, chest pain, difficulty breathing, difficulty breathing, or any other new or concerning symptoms, please return to the emergency room. - Post Discharge Activity Work/Back to School Note: Back to Work
== END 2020-03-06 17:55 | disposition home or self-care (01) ==
LOC: JER 13:32
PROC: 3E033GC Introduction of Other Therapeutic Substance into Peripheral Vein, Percutaneous Approach (ICD-10-PCS; principal; 2020-03-06)
DX: R11.2 Nausea with vomiting, unspecified (principal)
CPT/HCPCS: 36415; 80053; 81003; 83690; 83735; 84703; 85025; 85610; 85730; 87070; 87086; 87880; 99284-25; J0131; U0003

== ENCOUNTER 2020-10-26 16:33 | Emergency (ER) | payer OTHER ==
[2020-10-26 16:43] VITALS: BP 98/65; PULSE 75; TEMP 97.7; BMI 21.9
[2020-10-26] MEDS ORDERED: SODIUM CHLORIDE 1,000 ML IV STA (17:29)
[2020-10-26 18:27] LABS: BASO % 0.4 % (0-2.0); EOS % 0.9 % (0-4.5); HEMATOCRIT 39.1 % (32.4-45.2); HEMOGLOBIN 12.8 GM/dL (10.7-15.3); LYMPH % 14.1 % (8-40); MCH 30.2 pg (25.7-33.7); MCHC 32.7 g/dl (32.0-36.0); MEAN CELL VOLUME 92.4 fl (80-96); MEAN PLT VOLUME 10.9 fl (7.5-11.1); MONO % 6.8 % (3.8-10.2); NEUT % 77.8 % (42.8-82.8); PLATELET COUNT 201 K/MM3 (134-434); RBC 4.23 M/mm3 (3.60-5.2); RDW 13.3 % (11.6-15.6); WHITE BLOOD COUNT 7.9 K/mm3 (4.0-10.0)
[2020-10-26 18:35] LABS: HCG,QUALITATIVE URINE Negative
[2020-10-26 18:36] LABS: EPI CELLS >36 /uL (0-25.1); HYALINE CASTS 3 /uL (0-3.1); URINE APPEARANCE CLEAR; URINE BACTERIA 1136 /uL (0-1359); URINE BILIRUBIN NEGATIVE (NEGATIVE); URINE COLOR YELLOW; URINE GLUCOSE (UA) NEGATIVE (NEGATIVE); URINE KETONE NEGATIVE (NEGATIVE); URINE LEUK ESTERASE 2+ (NEGATIVE); URINE NITRITE NEGATIVE (NEGATIVE); URINE PROTEIN NEGATIVE (NEGATIVE); URINE RBC 6 /uL (0-23.9); URINE WBC 56 /uL (0-25.8)
[2020-10-26 18:54] LABS: CHLORIDE 102 mmol/L (98-107); POTASSIUM 3.8 mmol/L (3.5-5.1); SODIUM 136 mmol/L (136-145)
[2020-10-26 18:56] LABS: ALBUMIN 4.5 g/dl (3.4-5.0); ANION GAP 5 MMOL/L (8-16); BLOOD UREA NITROGEN 12.6 mg/dL (7-18); CALCIUM 9.5 mg/dL (8.5-10.1); CO2 29 mmol/L (21-32)
[2020-10-26 18:59] LABS: CREATININE 0.8 mg/dL (0.55-1.3); SGOT/AST 12 U/L (15-37); SGPT/ALT 18 U/L (13-61)
[2020-10-26 19:01] LABS: BILIRUBIN,TOTAL 1.1 mg/dL (0.2-1); TOT PROT 7.9 g/dl (6.4-8.2)
[2020-10-26 19:02] LABS: ALK PHOS 50 U/L (45-117); GLUCOSE,RANDOM 42 mg/dL (74-106)
[2020-10-26] MEDS ORDERED: DEXTROSE 50%-WATER - 25 GM/50 ML VIAL IVPUSH ONE (19:12)
[2020-10-26] MEDS ORDERED: DEXTROSE 50%-WATER 25 GM/50 ML DISP.SYRIN ONE (19:13)
== END 2020-10-26 21:28 | disposition home or self-care (01) ==
LOC: JER 16:33
PROC: 3E033GC Introduction of Other Therapeutic Substance into Peripheral Vein, Percutaneous Approach (ICD-10-PCS; principal; 2020-10-26)
PROC: 3E0337Z Introduction of Electrolytic and Water Balance Substance into Peripheral Vein, Percutaneous Approach (ICD-10-PCS; 2020-10-26)
DX: R55 Syncope and collapse (principal)
CPT/HCPCS: 36415; 70450-TC; 80053; 81003; 82962; 83605; 84703; 85025; 87086; 93005; 93010; 99285-25

== ENCOUNTER 2021-01-11 09:17 | Emergency (ER) | payer OTHER ==
[2021-01-11 09:38] VITALS: BP 99/67; PULSE 81; TEMP 97.7; BMI 22.6
[2021-01-11 11:27] LABS: EOS % 2.1 % (0-4.5); HEMATOCRIT 38.7 % (32.4-45.2); LYMPH % 34.7 % (8-40); MCH 30.2 pg (25.7-33.7); MCHC 33.5 g/dl (32.0-36.0); NEUT % 54.2 % (42.8-82.8); PLATELET COUNT 173 10^3/uL (134-434); RDW 13.3 % (11.6-15.6); WHITE BLOOD COUNT 5.3 K/mm3 (4.0-10.0)
[2021-01-11 11:33] LABS: CHLORIDE 109 mmol/L (98-107); SODIUM 141 mmol/L (136-145)
[2021-01-11 11:35] LABS: ALBUMIN 4.3 g/dl (3.4-5.0); CALCIUM 9.4 mg/dL (8.5-10.1); LIPASE 111 U/L (73-393)
[2021-01-11 11:36] LABS: ANION GAP 3 MMOL/L (8-16); BLOOD UREA NITROGEN 9.1 mg/dL (7-18); CO2 29 mmol/L (21-32); GLUCOSE,RANDOM 97 mg/dL (74-106)
[2021-01-11 11:38] LABS: CREATININE 0.7 mg/dL (0.55-1.3); SGOT/AST 12 U/L (15-37); SGPT/ALT 16 U/L (13-61)
[2021-01-11 11:40] LABS: BILIRUBIN,TOTAL 0.8 mg/dL (0.2-1); TOT PROT 7.5 g/dl (6.4-8.2)
[2021-01-11 11:41] LABS: ALK PHOS 43 U/L (45-117)
== END 2021-01-11 12:04 | disposition home or self-care (01) ==
LOC: JER 09:17
DX: M94.0 Chondrocostal junction syndrome [Tietze] (principal)
CPT/HCPCS: 36415; 71046-TC-FY; 80053; 83690; 84484; 84702; 85025; 85379; 93005; 93010; 99285-25

== ENCOUNTER 2021-04-25 17:10 | Emergency (ER) | payer OTHER ==
[2021-04-25 17:30] VITALS: BP 91/59; PULSE 86; TEMP 99; BMI 23.8
[2021-04-25] MEDS ORDERED: ASPIRIN 81 MG CHEWABLE TABLETS PO ONE (18:35)
[2021-04-25] MEDS ORDERED: CYCLOBENZAPRINE HCL 10 MG TABLET (FP) PO ONE (18:39)
== END 2021-04-25 19:46 | disposition left against medical advice (07) ==
LOC: JER 17:10
DX: R07.81 Pleurodynia (principal); M62.838 Other muscle spasm
CPT/HCPCS: 99281-25

== ENCOUNTER 2021-12-11 10:57 | Emergency (ER) | payer OTHER ==
[2021-12-11 11:12] VITALS: BP 114/67; PULSE 83; TEMP 98.1; BMI 24.7
[2021-12-11 12:38] LABS: BASO % 0.6 % (0-2.0); EOS % 1.6 % (0-4.5); HEMOGLOBIN 13.5 GM/dL (10.7-15.3); LYMPH % 22.7 % (8-40); MCH 30.3 pg (25.7-33.7); MCHC 33.7 g/dl (32.0-36.0); MEAN PLT VOLUME 9.7 fl (7.5-11.1); MONO % 9.2 % (3.8-10.2); NEUT % 65.9 % (42.8-82.8); PLATELET COUNT 184 10^3/uL (134-434); RBC 4.44 M/mm3 (3.60-5.2); RDW 13.3 % (11.6-15.6)
[2021-12-11 12:42] LABS: CALCIUM 9.3 mg/dL (8.5-10.1)
[2021-12-11 12:44] LABS: BLOOD UREA NITROGEN 6.8 mg/dL (7-18)
[2021-12-11 12:46] LABS: CREATININE 0.6 mg/dL (0.55-1.3)
[2021-12-11 12:49] LABS: BILIRUBIN,TOTAL 0.6 mg/dL (0.2-1); TOT PROT 7.1 g/dl (6.4-8.2)
[2021-12-11 13:02] LABS: HCG,QUALITATIVE URINE Negative
[2021-12-11 13:03] LABS: EPI CELLS 9 /uL (0-25.1); HYALINE CASTS 1 /uL (0-3.1); URINE APPEARANCE CLEAR; URINE BACTERIA 23 /uL (0-1359); URINE BILIRUBIN NEGATIVE (NEGATIVE); URINE COLOR YELLOW; URINE GLUCOSE (UA) NEGATIVE (NEGATIVE); URINE KETONE NEGATIVE (NEGATIVE); URINE LEUK ESTERASE NEGATIVE (NEGATIVE); URINE NITRITE NEGATIVE (NEGATIVE); URINE PROTEIN NEGATIVE (NEGATIVE); URINE RBC 13 /uL (0-23.9); URINE WBC 5 /uL (0-25.8)
== END 2021-12-11 15:44 | disposition home or self-care (01) ==
LOC: JER 10:57
DX: N93.9 Abnormal uterine and vaginal bleeding, unspecified (principal)
CPT/HCPCS: 36415; 76830-TC; 80053; 81003; 84702; 84703; 85025; 86850; 86900; 86901; 87086; 99284-25

== ENCOUNTER 2022-07-18 09:57 | Emergency (ER) | payer OTHER ==
[2022-07-18 10:03] VITALS: BP 101/67; PULSE 81; RESP 18; TEMP 98; BMI 23.7
[2022-07-18 11:07] LABS: EPI CELLS >36 /uL (0-25.1); HYALINE CASTS 9 /uL (0-3.1); URINE APPEARANCE CLOUDY; URINE BACTERIA 2763 /uL (0-1359); URINE BILIRUBIN NEGATIVE (NEGATIVE); URINE COLOR YELLOW; URINE GLUCOSE (UA) NEGATIVE (NEGATIVE); URINE KETONE NEGATIVE (NEGATIVE); URINE LEUK ESTERASE 2+ (NEGATIVE); URINE NITRITE NEGATIVE (NEGATIVE); URINE PROTEIN TRACE (NEGATIVE); URINE WBC 76 /uL (0-25.8)
[2022-07-18 11:14] LABS: HCG,QUALITATIVE URINE Negative
[2022-07-18 11:30] LABS: URINE RBC 26.1 /uL (0-23.9)
[2022-07-18] MEDS ORDERED: cefTRIAXone SODIUM 1 GM VIAL ONE (13:35)
[2022-07-18] MEDS ORDERED: KETOROLAC TROMETHAMINE 30 MG/1 ML VIAL IM ONE (14:02)
== END 2022-07-18 14:39 | disposition home or self-care (01) ==
LOC: JER 09:57
PROC: 3E023GC Introduction of Other Therapeutic Substance into Muscle, Percutaneous Approach (ICD-10-PCS; principal; 2022-07-18)
DX: N10 Acute pyelonephritis (principal)
CPT/HCPCS: 74176-TC; 81003; 84703; 87086; 99285-25